=== PATIENT | female | born 1995 | race Caucasian/White ===

== ENCOUNTER 2016-07-20 09:23 | Emergency (ER) | payer MEDICAID, OTHER ==
[2016-07-20] MEDS ORDERED: KETOROLAC 30 MG/ML 1 ML VIAL IVP STA (09:43)
[2016-07-20] MEDS ORDERED: ONDANSETRON 4 MG/2 ML VIAL IVP STA (09:53)
[2016-07-20] MEDS ORDERED: HYDROmorphone 1 MG/ML 1 ML SYRINGE IVP STA ×2 (09:53→10:35)
[2016-07-20] MEDS ORDERED: SODIUM CHLORIDE 0.9% 1,000 ML IV STA ×2 (09:53)
--- NOTE | 2016-07-20 09:55 | ED ---
General Adult HPI - General Chief complaint: Abdominal Pain Stated complaint: POSS KIDNEY STONE Time Seen by Provider: 07/20/16 09:48 Source: patient, RN notes reviewed Mode of arrival: ambulatory Limitations: no limitations - History of Present Illness Initial comments: Patient 21-year-old female with significant past mental history who presents emergency room today with chief complaint of increased right-sided lung pain. Does admit that she had some mild discomfort last night with increased this morning upon awakening. Does admit to symptoms of nausea vomiting. States never had some symptoms in the past. Denies any other complaints or symptoms at this time. Patient denies any recent fever, chills, shortness of breath, chest pain, numbness or tingling, dysuria or hematuria, constipation or diarrhea , headaches or visual changes, or any other complaints. - Related Data Home Medications Medication Instructions Recorded Confirmed Thyrostim 1 tab PO DAILY 07/20/16 07/20/16 Previous Rx's Medication Instructions Recorded Hydrocodone/Acetaminophen [[place] 1 each PO Q6HR PRN #20 tab 07/20/16 5-325] Ibuprofen [Motrin] 600 mg PO Q6HR PRN #40 day 07/20/16 Nitrofurantoin Monohyd/M-Cryst 100 mg PO Q12HR #14 cap 07/20/16 [Macrobid] Ondansetron Odt [Zofran ODT] 4 mg PO Q8HR PRN #20 tab 07/20/16 Tamsulosin [Flomax] 0.4 mg PO DAILY #3 cap 07/20/16 Allergies Allergy/AdvReac Type Severity Reaction Status Date / Time amoxicillin [Amoxicillin] Allergy Rash/Hives Verified 01/17/14 16:27 azithromycin Allergy Rash/Hives Verified 12/22/14 22:28 [From Zithromax Z-Jayson] codeine Allergy Rapid Verified 01/17/14 16:27 Heart Rate Review of Systems ROS Statement: Those systems with pertinent positive or pertinent negative responses have been documented in the HPI. ROS Other: All systems not noted in ROS Statement are negative. Past Medical History Additional Past Medical History / Comment(s): hypothyroidism History of Any Multi-Drug Resistant Organisms: None Reported Past Surgical History: No Surgical Hx Reported Past Psychological History: Anxiety Smoking Status: Never smoker Past Alcohol Use History: None Reported Past Drug Use History: None Reported General Exam - General Exam Comments Initial Comments: General: The patient is awake and alert, in moderate distress. Eye: Pupils are equal, round and reactive to light, extra-ocular movements are intact. No nystagmus. There is normal conjunctiva bilaterally. No signs of icterus. Ears, nose, mouth and throat: There are moist mucous membranes and no oral lesions. Neck: The neck is supple, there is no tenderness or JVD. Cardiovascular: There is a regular rate and rhythm. No murmur, rub or gallop is appreciated. Respiratory: Lungs are clear to auscultation, respirations are non-labored, breath sounds are equal. No wheezes, stridor, rales, or rhonchi. Gastrointestinal: Normal appearance abdomen. Normal bowel sounds. Abdomen soft on palpation. Patient does have tenderness in the epigastric both left and right upper quadrants along with right lower quadrant. Moderate right- sided CVA tenderness. No rebound tenderness. No guarding. Musculoskeletal: Normal ROM, no tenderness. Strength 5/5. Sensation intact. Pulses equal bilaterally 2+. Neurological: A&O x 3. CN II-XII intact, There are no obvious motor or sensory deficits. Coordination appears grossly intact. Speech is normal. Skin: Skin is warm and dry and no rashes or lesions are noted. Psychiatric: Cooperative, appropriate mood & affect, normal judgment. Limitations: no limitations Course Vital Signs 07/20/16 07/20/16 09:28 11:54 Temperature 97.5 F L 98.1 F Pulse Rate 114 H 92 Respiratory 24 16 Rate Blood Pressure 132/87 127/71 O2 Sat by Pulse 100 98 Oximetry Medical Decision Making - Medical Decision Making Patient's CT reviewed and does show possible right ureteral calculus vision approximately 6 mm. There is dictated collecting system within the right kidney. These results were discussed with the patient. Patient's labs been reviewed. No sign of infection but will be started on antibiotics cover. Will be discharged home advised follow-up urologist over the next 2 days she's currently resting comfortably in no distress. Patient advised to return if any symptoms increase or worsen or for any fever or chills or any other concerns. She states understanding and is in agreement. - Lab Data Result diagrams: 07/20/16 09:20 07/20/16 09:20 Lab Results 07/20/16 07/20/16 07/20/16 Range/Units 09:20 09:20 10:00 WBC 8.1 (3.8-10.6) k/uL RBC 4.45 (3.80-5.40) m/uL Hgb 13.6 (11.4-16.0) gm/dL Hct 39.5 (34.0-46.0) % MCV 88.8 (80.0-100.0) fL MCH 30.6 (25.0-35.0) pg MCHC 34.5 (31.0-37.0) g/dL RDW 11.8 (11.5-15.5) % Plt Count 324 (150-450) k/uL Neutrophils % 62 % Lymphocytes % 30 % Monocytes % 4 % Eosinophils % 1 % Basophils % 1 % Neutrophils # 5.0 (1.3-7.7) k/uL Lymphocytes # 2.4 (1.0-4.8) k/uL Monocytes # 0.3 (0-1.0) k/uL Eosinophils # 0.1 (0-0.7) k/uL Basophils # 0.0 (0-0.2) k/uL Sodium 140 (137-145) mmol/L Potassium 3.7 (3.5-5.1) mmol/L Chloride 104 (98-107) mmol/L Carbon Dioxide 21 L (22-30) mmol/L Anion Gap 15 mmol/L BUN 15 (7-17) mg/dL Creatinine 0.70 (0.52-1.04) mg/dL Est GFR (MDRD) Af Amer >60 (>60 ml/min/1.73 sqM) Est GFR (MDRD) Non-Af >60 (>60 ml/min/1.73 sqM) Glucose 111 H (74-99) mg/dL Calcium 10.1 (8.4-10.2) mg/dL Total Bilirubin 0.7 (0.2-1.3) mg/dL AST 21 (14-36) U/L ALT 27 (9-52) U/L Alkaline Phosphatase 89 (38-126) U/L Total Protein 7.9 (6.3-8.2) g/dL Albumin 4.6 (3.5-5.0) g/dL Amylase 52 (30-110) U/L Lipase 37 (23-300) U/L Urine Color Urine Appearance (Clear) Urine pH (5.0-8.0) Ur Specific [place] (1.001-1.035) Urine Protein (Negative) Urine Glucose (UA) (Negative) Urine Ketones (Negative) Urine Blood (Negative) Urine Nitrite (Negative) Urine Bilirubin (Negative) Urine Urobilinogen (<2.0) mg/dL Ur Leukocyte Esterase (Negative) Urine RBC (0-5) /hpf Urine WBC (0-5) /hpf Ur Squamous Epith Cells (0-4) /hpf Urine Mucus (None) /hpf Urine HCG, Qual Not Detected (Not Detectd) 07/20/16 Range/Units 10:00 WBC (3.8-10.6) k/uL RBC (3.80-5.40) m/uL Hgb (11.4-16.0) gm/dL Hct (34.0-46.0) % MCV (80.0-100.0) fL MCH (25.0-35.0) pg MCHC (31.0-37.0) g/dL RDW (11.5-15.5) % Plt Count (150-450) k/uL Neutrophils % % Lymphocytes % % Monocytes % % Eosinophils % % Basophils % % Neutrophils # (1.3-7.7) k/uL Lymphocytes # (1.0-4.8) k/uL Monocytes # (0-1.0) k/uL Eosinophils # (0-0.7) k/uL Basophils # (0-0.2) k/uL Sodium (137-145) mmol/L Potassium (3.5-5.1) mmol/L Chloride (98-107) mmol/L Carbon Dioxide (22-30) mmol/L Anion Gap mmol/L BUN (7-17) mg/dL Creatinine (0.52-1.04) mg/dL Est GFR (MDRD) Af Amer (>60 ml/min/1.73 sqM) Est GFR (MDRD) Non-Af (>60 ml/min/1.73 sqM) Glucose (74-99) mg/dL Calcium (8.4-10.2) mg/dL Total Bilirubin (0.2-1.3) mg/dL AST (14-36) U/L ALT (9-52) U/L Alkaline Phosphatase (38-126) U/L Total Protein (6.3-8.2) g/dL Albumin (3.5-5.0) g/dL Amylase (30-110) U/L Lipase (23-300) U/L Urine Color Light [place] Urine Appearance Cloudy H (Clear) Urine pH 8.0 (5.0-8.0) Ur Specific [place] 1.018 (1.001-1.035) Urine Protein 1+ H (Negative) Urine Glucose (UA) Negative (Negative) Urine Ketones Trace H (Negative) Urine Blood Large H (Negative) Urine Nitrite Negative (Negative) Urine Bilirubin Negative (Negative) Urine Urobilinogen <2.0 (<2.0) mg/dL Ur Leukocyte Esterase Trace H (Negative) Urine RBC >182 H (0-5) /hpf Urine WBC 7 H (0-5) /hpf Ur Squamous Epith Cells 14 H (0-4) /hpf Urine Mucus Many H (None) /hpf Urine HCG, Qual (Not Detectd) Disposition Clinical Impression: Kidney stone Disposition: HOME SELF-CARE Condition: Good Instructions: Kidney Stones (ED) Additional Instructions: Please use medication as discussed. Please follow-up with family doctor in the next 2 days of symptoms have not improved. Please return to emergency room if the symptoms increase or worsen or for any other concerns. Prescriptions: Hydrocodone/Acetaminophen [[place] 5-325] 1 each PO Q6HR PRN #20 tab PRN Reason: Pain Ibuprofen [Motrin] 600 mg PO Q6HR PRN #40 day PRN Reason: Pain Nitrofurantoin Monohyd/M-Cryst [Macrobid] 100 mg PO Q12HR #14 cap Ondansetron Odt [Zofran ODT] 4 mg PO Q8HR PRN #20 tab PRN Reason: Nausea Tamsulosin [Flomax] 0.4 mg PO DAILY #3 cap Time of Disposition: 12:02
[2016-07-20 10:12] LABS: Basophils % (A) 1 %; CH 31.3; CHCM 35.3; Eosinophils # (A) 0.1 k/uL (0-0.7); Eosinophils % (A) 1 %; HCT 39.5 % (34.0-46.0); HGB 13.6 gm/dL (11.4-16.0); Luc # (Auto) 0.25; Luc % (Auto) 3; Lymphocytes # (A) 2.4 k/uL (1.0-4.8); Lymphocytes % (A) 30 %; MCH 30.6 pg (25.0-35.0); MCHC 34.5 g/dL (31.0-37.0); MCV 88.8 fL (80.0-100.0); Mean Platelet Volume 7.8; Monocytes # (A) 0.3 k/uL (0-1.0); Monocytes % (A) 4 %; Neutrophils % (A) 62 %; RBC 4.45 m/uL (3.80-5.40); RDW 11.8 % (11.5-15.5); WBC 8.1 k/uL (3.8-10.6); WBC (Perox) 7.95
[2016-07-20 10:18] LABS: Appearance,Urine Cloudy (Clear); Bilirubin,Urine Negative (Negative); Glucose,Urine (UA) Negative (Negative); Ketones,Urine Trace (Negative); Leukocyte Esterase,Urine Trace (Negative); Mucus,Urine Many /hpf; Nitrite,Urine Negative (Negative); Particle Count 17378; Protein,Urine 1+ (Negative); RBC,Urine >182 /hpf (0-5); Specific Gravity,Urine 1.018 (1.001-1.035); Squamous Epithelial Cell,Urine 14 /hpf (0-4); UA Billing (MACRO vs. MICRO) MICRO; Urobilinogen,Urine <2.0 mg/dL (<2.0); WBC,Urine 7 /hpf (0-5)
[2016-07-20 10:25] LABS: ALT 27 U/L (9-52); AST 21 U/L (14-36); Alkaline Phosphatase 89 U/L (38-126); Amylase 52 U/L (30-110); Anion Gap 15 mmol/L; Blood Urea Nitrogen 15 mg/dL (7-17); Calcium 10.1 mg/dL (8.4-10.2); Carbon Dioxide 21 mmol/L (22-30); Chloride 104 mmol/L (98-107); Glucose 111 mg/dL (74-99); Non-African American GFR(MDRD) >60 (>60 ml/min/1.73 sqM); Potassium 3.7 mmol/L (3.5-5.1); Sodium 140 mmol/L (137-145); Total Bilirubin 0.7 mg/dL (0.2-1.3); Total Protein 7.9 g/dL (6.3-8.2)
--- NOTE | 2016-07-20 10:57 | XR ---
EXAMINATION TYPE: XR KUB DATE OF EXAM: 07/20/2016 10:43 AM COMPARISON: NONE HISTORY: Right upper quadrant pain TECHNIQUE: One view abdominal series FINDINGS: The osseous structures are intact. The bowel gas pattern is nonspecific. Single prominent bowel loop in the upper abdomen noted. Lung bases are clear. IMPRESSION: 1. Nonspecific abdomen. Prominent single bowel loop in the midabdomen is nonspecific could be relate d to localized enteritis or ileus.
--- NOTE | 2016-07-20 11:12 | CT ---
EXAMINATION TYPE: CT abdomen pelvis wo con DATE OF EXAM: 07/20/2016 10:58 AM COMPARISON: Prior CT abdomen pelvis 16 Sep 2012 HISTORY: Rt flank pain CT DLP: 836 mGycm Automated exposure control for dose reduction was used. TECHNIQUE: Helical acquisition of images from the lung bases through the pelvis. FINDINGS: LUNG BASES: No significant abnormality is appreciated. AORTA: No significant abnormality is appreciated. LIVER/GB: No significant abnormality is appreciated. PANCREAS: No significant abnormality is seen. SPLEEN: No significant abnormality is seen. ADRENALS: No significant abnormality is seen. KIDNEYS: Proximal right ureteral calculus is present measuring approximately 6 mm. 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 REPRODUCTIVE ORGANS: No significant abnormality is seen. URINARY BLADDER: No significant abnormality is seen. BOWEL: Appendix is normal. No bowel obstruction. Small umbilical hernia contains fat. FREE AIR: No Free Air is visible. Small amount of free fluid in the pelvis. ASCITES: None visible. PELVIC ADENOPATHY: None visualized. RETROPERITONEAL ADENOPATHY: No Retroperitoneal Adenopathy visible. OSSEOUS STRUCTURES: No significant abnormality is seen. IMPRESSION: PROXIMAL RIGHT URETERAL CALCULUS WITH DUPLICATED COLLECTING SYSTEM ON THE RIGHT. MILD HYDRONEPHROSIS INVOLVING THE MORE ANTERIOR COLLECTING SYSTEM. NONCONTRAST EXAM.
[2016-07-20 11:56] VITALS: RESP 16; TEMP 98.1
[2016-07-20 12:09] VITALS: BP 122/74; PULSE 84
== END 2016-07-20 12:28 | disposition home or self-care (01) ==
LOC: EC 09:23
DX: N13.2 Hydronephrosis with renal and ureteral calculous obstruction (principal); Q63.8 Other specified congenital malformations of kidney; E03.9 Hypothyroidism, unspecified; Z79.899 Other long term (current) drug therapy; Z88.0 Allergy status to penicillin; Z88.1 Allergy status to other antibiotic agents; Z88.5 Allergy status to narcotic agent
CPT/HCPCS: 36415; 80053; 82150; 83690; 85025; 81001; 81025; 74000; 74176; 99284; 96374; 96375 ×2; 96361 ×2; J2405; J1885; J1170; 96376

== ENCOUNTER 2016-08-11 10:54 | Emergency (ER) | payer OTHER ==
[2016-08-11 11:16] VITALS: RESP 18
--- NOTE | 2016-08-11 11:46 | ED ---
Extremity Problem HPI - General Chief complaint: Extremity Problem,Nontraumatic Stated complaint: Leg pain Time Seen by Provider: 08/11/16 11:36 Source: patient, RN notes reviewed Mode of arrival: ambulatory Limitations: no limitations - History of Present Illness Initial comments: 21-year-old female presents emergency Department chief complaint of left calf pain. Patient states she woke up this morning with this pain in her left calf. Patient states that it is tight. Patient states she such that her leg hurts as well. Patient states that she also had a small area of pain to her left forearm. Patient states that she has been sitting at home breath last month or so she's been taking narcosis for a kidney stone pain. Patient states she is at flank and left chest active than normal she was concerned when she developed left calf pain. Patient denies any history of blood clots. Patient states she hasn't had any other symptoms with this. Patient states the pain is moderate worse to starting touching and movement of the legs better to rest. Patient states that she is not currently having any other symptoms at this time.Patient denies any recent fever, chills, shortness of breath, chest pain, back pain, abdominal pain, nausea vomiting, numbness or tingling, dysuria or hematuria, constipation or diarrhea, headaches or visual changes, or any other current symptoms. - Related Data Home Medications Medication Instructions Recorded Confirmed Thyrostim 1 tab PO DAILY 07/20/16 07/20/16 Previous Rx's Medication Instructions Recorded Hydrocodone/Acetaminophen [[place] 1 each PO Q6HR PRN #20 tab 07/20/16 5-325] Ibuprofen [Motrin] 600 mg PO Q6HR PRN #40 day 07/20/16 Nitrofurantoin Monohyd/M-Cryst 100 mg PO Q12HR #14 cap 07/20/16 [Macrobid] Ondansetron Odt [Zofran ODT] 4 mg PO Q8HR PRN #20 tab 07/20/16 Ondansetron [Zofran] 4 mg PO Q8HR PRN #20 tab 07/20/16 Tamsulosin [Flomax] 0.4 mg PO DAILY #3 cap 07/20/16 Allergies Allergy/AdvReac Type Severity Reaction Status Date / Time amoxicillin [Amoxicillin] Allergy Rash/Hives Verified 08/11/16 11:16 azithromycin Allergy Rash/Hives Verified 08/11/16 11:16 [From Zithromax Z-Jayson] codeine Allergy Rapid Verified 08/11/16 11:16 Heart Rate ethinyl estradiol Allergy Rash/Hives Verified 08/11/16 11:16 [From (21)] norethindrone acetate Allergy Rash/Hives Verified 08/11/16 11:16 [From (21)] Review of Systems ROS Statement: Those systems with pertinent positive or pertinent negative responses have been documented in the HPI. ROS Other: All systems not noted in ROS Statement are negative. Past Medical History Additional Past Medical History / Comment(s): hypothyroidism kikdney stones History of Any Multi-Drug Resistant Organisms: None Reported Past Surgical History: No Surgical Hx Reported Past Psychological History: Anxiety Smoking Status: Never smoker Past Alcohol Use History: None Reported Past Drug Use History: None Reported General Exam - General Exam Comments Initial Comments: General: The patient is awake and alert, in no distress, and does not appear acutely ill. Eye: Pupils are equal, round. Ears, nose, mouth and throat: There are moist mucous membranes. Neck: The neck is supple, there is no tenderness. Cardiovascular: There is a regular rate and rhythm. No murmur, rub or gallop is appreciated. Respiratory: Lungs are clear to auscultation, respirations are non-labored, breath sounds are equal. No wheezes, stridor, rales, or rhonchi. Musculoskeletal: Normal ROM, no tenderness, There is no pedal edema. Patient does have left Posterior tenderness with a positive Homans sign. No tenderness to left ankle or left knee informed motion. Patient's range of motion of left elbow and left wrist with no tenderness. Patient has a small circular area of point tenderness to left forearm. Sensation intact. Pulses equal bilaterally 2+ . Neurological: CN II-XII intact, There are no obvious motor or sensory deficits. Coordination appears grossly intact. Speech is normal. Skin: Skin is warm and dry and no rashes or lesions are noted. Psychiatric: Cooperative, appropriate mood & affect, normal judgment. Limitations: no limitations Course Vital Signs 08/11/16 11:12 Temperature 98.0 F Pulse Rate 98 Respiratory 18 Rate Blood Pressure 130/87 O2 Sat by Pulse 99 Oximetry Medical Decision Making - Medical Decision Making 21-year-old female presents emergency Department chief complaint of left lower extremity pain. This time we will get an ultrasound. At this time patient's ultrasound is negative for DVT. There is time we discussed patient most likely is having a left calf strain. We discussed care of this. We discussed follow- up and return parameters. Patient's family stated they understood all questions were answered. They will be discharged. - Radiology Data Radiology results: report reviewed, image reviewed Disposition Clinical Impression: Strain of calf muscle Disposition: HOME SELF-CARE Condition: Stable Instructions: Muscle Strain (ED) Additional Instructions: Please use medication as discussed. Please follow up with family doctor if symptoms have not improved over the next two days. Please return to the emergency room if your symptoms increase or worsen or for any other concerns. Referrals: Deniz Jarrell DO [Primary Care Provider] - 1-2 days
--- NOTE | 2016-08-11 12:41 | US ---
EXAMINATION TYPE: US venous doppler duplex LE LT DATE OF EXAM: 08/11/2016 12:29 PM COMPARISON: NONE CLINICAL HISTORY: 21-year-old female Pain. Left leg pain SIDE PERFORMED: Left TECHNIQUE: The lower extremity deep venous system is examined utilizing real time linear array sonog gregoria with graded compression, doppler sonography and color-flow sonography. FINDINGS: VESSELS IMAGED: External Iliac Vein (EIV) Common Femoral Vein Deep Femoral Vein Greater Saphenous Vein * Femoral Vein Popliteal Vein Proximal Calf Veins (* superficial vessels) Left Leg: Negative for DVT IMPRESSION: No evidence for DVT within the left lower extremity imaged from the groin to the upper calf.
[2016-08-11 12:54] VITALS: BP 144/90; PULSE 97; TEMP 97.3
== END 2016-08-11 12:53 | disposition home or self-care (01) ==
LOC: EC 10:54
DX: S86.912A Strain of unspecified muscle(s) and tendon(s) at lower leg level, left leg, initial encounter (principal); M79.632 Pain in left forearm; E03.9 Hypothyroidism, unspecified; Z79.899 Other long term (current) drug therapy; Z88.0 Allergy status to penicillin; Z88.1 Allergy status to other antibiotic agents; Z88.5 Allergy status to narcotic agent; Z88.8 Allergy status to other drugs, medicaments and biological substances; X58.XXXA Exposure to other specified factors, initial encounter
CPT/HCPCS: 99283

== ENCOUNTER → 2016-08-31 | Outpatient (CLI) | payer OTHER ==
--- NOTE | 2016-08-31 12:12 | XR ---
EXAMINATION TYPE: XR KUB DATE OF EXAM: 08/31/2016 12:06 PM CLINICAL HISTORY: Right-sided kidney stone with cystoscopy 2 weeks ago. TECHNIQUE: Single supine KUB image of the abdomen is obtained. COMPARISON: CT abdomen and pelvis and abdominal x-ray July 20, 2016. FINDINGS: Small right calculus 5 mm at UPJ is not well seen on this or prior x-ray to assess change. Scattered gas is seen in non-distended stomach and small bowel loops. Gas and fecal material is seen in non-distended colon. Visualized osseous structures are intact. Lung bases are not included. IMPRESSION: A 5 mm calculus at right UPJ on CT is not well seen on this or prior x-ray to assess inte rval change.
== END | disposition home or self-care (01) ==
LOC: RADXRMAIN 11:54
PROVIDERS: ATTEND Urology
DX: N20.1 Calculus of ureter (principal)
CPT/HCPCS: 74000

== ENCOUNTER → 2016-12-26 | Outpatient (CLI) | payer OTHER ==
--- NOTE | 2016-12-26 14:17 | US ---
EXAMINATION TYPE: US kidneys/renal and bladder DATE OF EXAM: 12/26/2016 COMPARISON: CT abdomen pelvis dated 07/20/2016 CLINICAL HISTORY: Calculus of Ureter N20.1, R93.4 Hx of hydronephros. EXAM MEASUREMENTS: Right Kidney: 9.8 x 4.2 x 4.4 cm Left Kidney: 9.5 x 4.6 x 4.7 cm Right Kidney: No hydronephrosis or masses seen Left Kidney: No hydronephrosis or masses seen Bladder: wnl Bilateral Jets seen: Yes There is no evidence for hydronephrosis at this point in time. No nephrolithiasis is seen. No tammy s are identified. The urinary bladder is anechoic. Bilateral ureteral jets are seen. IMPRESSION: No evidence of nephrolithiasis or hydronephrosis. Hydronephrosis has resolved on the right from the p rior examination of 07/20/2016.
== END | disposition home or self-care (01) ==
LOC: RADUSWWP 13:35
PROVIDERS: ATTEND Urology
DX: N13.30 Unspecified hydronephrosis (principal)
CPT/HCPCS: 76770

== ENCOUNTER 2017-03-27 11:37 | Emergency (ER) | payer OTHER ==
[2017-03-27 12:06] VITALS: TEMP 98.2
[2017-03-27] MEDS ORDERED: ONDANSETRON 4 MG/2 ML VIAL IVP STA (12:10)
[2017-03-27] MEDS ORDERED: FAMOTIDINE 20 MG/2 ML VIAL IV STA (12:10)
[2017-03-27] MEDS ORDERED: SODIUM CHLORIDE 0.9% 1,000 ML IV ONE (12:36)
[2017-03-27] MEDS ORDERED: methylPREDNISolone SOD SUCCI 125 MG/2 ML VIAL IV STA (12:36)
--- NOTE | 2017-03-27 12:40 | ED ---
Allergic Reaction HPI - General Chief complaint: Allergic Reaction Stated complaint: Allergic Reaction Time Seen by Provider: 03/27/17 11:47 Source: patient, RN notes reviewed Mode of arrival: ambulatory Limitations: no limitations - History of Present Illness Initial Comments: This a 21-year-old female presents emergency Department chief complaint ALLERGIC reaction. Patient states she was at Dr. Hu office receiving ALLERGY injections states she had ALLERGIC reaction to them. Patient was given Benadryl and IV. Patient states she feels very shaky states her symptoms are improving. patient states that she has no difficulty breathing. Patient states she has multiple ALLERGIES to medications, food and environmental ALLERGIES - Related Data Home Medications Medication Instructions Recorded Confirmed Albuterol Sulfate [Proair 1 puff PO RT-DAILY 03/27/17 03/27/17 Respiclick] Fexofenadine HCl [Danielle Allergy] 180 mg PO DAILY 03/27/17 03/27/17 Montelukast Sodium [Singulair] 10 mg PO HS 03/27/17 03/27/17 Previous Rx's Medication Instructions Recorded predniSONE 50 mg PO DAILY #3 tab 03/27/17 Allergies Allergy/AdvReac Type Severity Reaction Status Date / Time amoxicillin [Amoxicillin] Allergy Rash/Hives Verified 03/27/17 11:57 azithromycin Allergy Rash/Hives Verified 03/27/17 11:57 [From Zithromax Z-Jayson] cashew nut Allergy Unknown Verified 03/27/17 11:57 codeine Allergy Rapid Verified 03/27/17 11:57 Heart Rate ethinyl estradiol Allergy Rash/Hives Verified 03/27/17 11:57 [From ()] norethindrone acetate Allergy Rash/Hives Verified 03/27/17 11:57 [From (21)] shellfish derived [Shrimp] Allergy Unknown Verified 03/27/17 11:57 Sulfa (Sulfonamide Allergy Unknown Verified 03/27/17 11:57 Antibiotics) tuna oil Allergy Unknown Verified 03/27/17 11:57 Review of Systems ROS Statement: Those systems with pertinent positive or pertinent negative responses have been documented in the HPI. ROS Other: All systems not noted in ROS Statement are negative. Past Medical History Past Medical History: Thyroid Disorder Additional Past Medical History / Comment(s): hypothyroidism kidney stones History of Any Multi-Drug Resistant Organisms: None Reported Past Surgical History: No Surgical Hx Reported Past Psychological History: Anxiety Smoking Status: Never smoker Past Alcohol Use History: None Reported Past Drug Use History: None Reported General Exam Limitations: no limitations General appearance: alert, in no apparent distress Head exam: Present: atraumatic, normocephalic, normal inspection Eye exam: Present: normal appearance, PERRL, EOMI. Absent: scleral icterus, conjunctival injection, periorbital swelling ENT exam: Present: normal exam, mucous membranes moist Neck exam: Present: normal inspection, full ROM. Absent: tenderness, meningismus, lymphadenopathy Respiratory exam: Present: normal lung sounds bilaterally. Absent: respiratory distress, wheezes, rales, rhonchi, stridor Cardiovascular Exam: Present: normal rhythm, tachycardia, normal heart sounds. Absent: systolic murmur, diastolic murmur, rubs, gallop, clicks Skin exam: Present: warm, dry, intact, normal color. Absent: rash Course Vital Signs 03/27/17 03/27/17 11:42 11:56 Temperature 98.0 F 98.2 F Pulse Rate 122 H 116 H Respiratory 22 28 H Rate Blood Pressure 144/94 134/64 O2 Sat by Pulse 100 99 Oximetry Medical Decision Making - Medical Decision Making 21-year-old male present emergency for ALLERGIC reaction. Patient is in or stressors stress no difficulty swallowing. Patient was given Pepcid and Solu- Medrol and fluid bolus. She states she is feeling better at this time. She'll be discharged advised take steroids relax 3 days and continuation of Benadryl return parameters were discussed. Disposition Clinical Impression: Allergic reaction Disposition: HOME SELF-CARE Condition: Stable Instructions: Anaphylaxis (ED) Additional Instructions: Please return to the Emergency Department if symptoms worsen or any other concerns. Prescriptions: predniSONE 50 mg PO DAILY #3 tab Referrals: Deniz Jarrell DO [Primary Care Provider] - 1-2 days Time of Disposition: 12:39
[2017-03-27 12:42] VITALS: RESP 18
[2017-03-27 13:57] VITALS: BP 119/74; PULSE 90
== END 2017-03-27 13:55 | disposition home or self-care (01) ==
LOC: EC 11:37
DX: T78.40XA Allergy, unspecified, initial encounter (principal); E03.9 Hypothyroidism, unspecified; F41.9 Anxiety disorder, unspecified; Z79.899 Other long term (current) drug therapy; Z88.0 Allergy status to penicillin; Z88.1 Allergy status to other antibiotic agents; Z88.5 Allergy status to narcotic agent; Z88.2 Allergy status to sulfonamides; Z91.013 Allergy to seafood; Z91.018 Allergy to other foods; Z88.8 Allergy status to other drugs, medicaments and biological substances
CPT/HCPCS: 99283; 96374; 96375 ×2; 96361; J2930; J2405

== ENCOUNTER 2017-10-31 21:31 | Emergency (ER) | payer MEDICAID, OTHER ==
[2017-10-31] MEDS ORDERED: KETOROLAC 30 MG/ML 1 ML VIAL IVP STA (22:14)
[2017-10-31] MEDS ORDERED: SODIUM CHLORIDE 0.9% 1,000 ML IV STA (22:14)
--- NOTE | 2017-10-31 22:19 | ED ---
Abdominal Pain HPI - General Chief Complaint: Abdominal Pain Stated Complaint: pelvic pain Time Seen by Provider: 10/31/17 21:58 Source: patient Mode of arrival: ambulatory Limitations: no limitations - History of Present Illness Initial Comments: 22-year-old female patient presents to the emergency department today for evaluation of pelvic pain. Patient states that she has had the pain for the last 3 months. States that the pain is present daily. States that when she has her. The pain goes away and she expresses her normal period cramping. She states that she is having low back pain with this. States that she has been trying to get into her stepdown nurse but doesn't have an appointment until December. She denies any dysuria, hematuria, urinary frequency, urinary urgency, vaginal discharge, abnormal vaginal bleeding, fevers, or chills. States that with the pain last month she did have one day where she vomited due to the severity of the pain. She denies any constipation or diarrhea. Denies any hematochezia or melena. Patient states she has not been evaluated for this pain before. Denies any chance of . Does not take control. Has a benign medical history. Patient denies any recent rash, shortness breath, chest pain, numbness, tingling, dizziness, weakness, headache, visual changes, or any other complaints. - Related Data Home Medications Medication Instructions Recorded Confirmed Albuterol Sulfate [Proair 1 puff INHALATION RT-DAILY PRN 03/27/17 10/31/17 Respiclick] Ibuprofen [Motrin Ib] 600 mg PO Q6H PRN 10/31/17 10/31/17 Allergies Allergy/AdvReac Type Severity Reaction Status Date / Time amoxicillin [Amoxicillin] Allergy Rash/Hives Verified 10/31/17 22:29 azithromycin Allergy Rash/Hives Verified 10/31/17 22:29 [From Zithromax Z-Jayson] cashew nut Allergy Unknown Verified 10/31/17 22:29 codeine Allergy Rapid Verified 10/31/17 22:29 Heart Rate ethinyl estradiol Allergy Rash/Hives Verified 10/31/17 22:29 [From (21)] norethindrone acetate Allergy Rash/Hives Verified 10/31/17 22:29 [From (21)] shellfish derived [Shrimp] Allergy Unknown Verified 10/31/17 22:29 Sulfa (Sulfonamide Allergy Unknown Verified 10/31/17 22:29 Antibiotics) tuna oil Allergy Unknown Verified 10/31/17 22:29 Review of Systems ROS Statement: Those systems with pertinent positive or pertinent negative responses have been documented in the HPI. ROS Other: All systems not noted in ROS Statement are negative. Past Medical History Past Medical History: Thyroid Disorder Additional Past Medical History / Comment(s): hypothyroidism kidney stones History of Any Multi-Drug Resistant Organisms: None Reported Past Surgical History: No Surgical Hx Reported Additional Past Surgical History / Comment(s): cysto for kidney stone removal Past Psychological History: Anxiety Smoking Status: Never smoker Past Alcohol Use History: None Reported Past Drug Use History: None Reported General Exam Limitations: no limitations General appearance: alert, in no apparent distress, other Eye exam: Present: normal appearance, PERRL, EOMI. Absent: scleral icterus, conjunctival injection, periorbital swelling ENT exam: Present: normal exam, normal oropharynx (Physical well-developed, well -nourished adult female patient in no acute distress. Vital signs upon presentation are temperature 98.8F, pulse 99, respirations 20, blood pressure 127/90, pulse ox 100% on room air.), mucous membranes moist Respiratory exam: Present: normal lung sounds bilaterally. Absent: respiratory distress, wheezes, rales, rhonchi, stridor Cardiovascular Exam: Present: regular rate, normal rhythm, normal heart sounds. Absent: systolic murmur, diastolic murmur, rubs, gallop, clicks GI/Abdominal exam: Present: soft, tenderness (Bilateral pelvic tenderness), normal bowel sounds. Absent: distended, guarding, rebound, rigid Back exam: Present: normal inspection. Absent: CVA tenderness (R), CVA tenderness (L) Neurological exam: Present: alert, oriented X3, CN II-XII intact Psychiatric exam: Present: normal affect, normal mood Skin exam: Present: warm, dry, intact, normal color. Absent: rash Course Vital Signs 10/31/17 11/01/17 21:36 00:31 Temperature 98.8 F Pulse Rate 99 88 Respiratory 20 16 Rate Blood Pressure 127/90 134/74 O2 Sat by Pulse 100 97 Oximetry Medical Decision Making - Medical Decision Making 22-year-old female patient presents the emergency department today for evaluation of pelvic pain 4 months. Physical examination does reveal right and left pelvic tenderness. Labs reviewed and showed no acute abnormalities. White blood cell count was normal. Urinalysis was negative. During history patient denied any abnormal vaginal bleeding or discharge. Patient denied any chance of STDs, states she's been in a monogamous relationship for the last 4 years. Transvaginal ultrasound was obtained and showed no acute abnormalities. Patient be discharged home to follow-up with her stepdown nurse and her primary care physician for further evaluation. Return parameters discussed in detail. She verbalizes understanding and agrees with this plan. - Lab Data Result diagrams: 10/31/17 22:49 10/31/17 22:49 Lab Results 10/31/17 10/31/17 10/31/17 Range/Units 22:49 22:49 22:49 WBC 10.0 (3.8-10.6) k/uL RBC 4.83 (3.80-5.40) m/uL Hgb 14.2 (11.4-16.0) gm/dL Hct 42.6 (34.0-46.0) % MCV 88.1 (80.0-100.0) fL MCH 29.5 (25.0-35.0) pg MCHC 33.5 (31.0-37.0) g/dL RDW 12.2 (11.5-15.5) % Plt Count 353 (150-450) k/uL Neutrophils % 62 % Lymphocytes % 30 % Monocytes % 5 % Eosinophils % 1 % Basophils % 0 % Neutrophils # 6.2 (1.3-7.7) k/uL Lymphocytes # 3.0 (1.0-4.8) k/uL Monocytes # 0.5 (0-1.0) k/uL Eosinophils # 0.1 (0-0.7) k/uL Basophils # 0.0 (0-0.2) k/uL Sodium 141 (137-145) mmol/L Potassium 4.0 (3.5-5.1) mmol/L Chloride 105 (98-107) mmol/L Carbon Dioxide 25 (22-30) mmol/L Anion Gap 11 mmol/L BUN 17 (7-17) mg/dL Creatinine 0.70 (0.52-1.04) mg/dL Est GFR (CKD-EPI)AfAm >90 (>60 ml/min/1.73 sqM) Est GFR (CKD-EPI)NonAf >90 (>60 ml/min/1.73 sqM) Glucose 98 (74-99) mg/dL Calcium 9.7 (8.4-10.2) mg/dL Total Bilirubin 0.4 (0.2-1.3) mg/dL AST 27 (14-36) U/L ALT 32 (9-52) U/L Alkaline Phosphatase 87 (38-126) U/L Total Protein 7.7 (6.3-8.2) g/dL Albumin 4.8 (3.5-5.0) g/dL Amylase 63 (30-110) U/L Lipase 64 (23-300) U/L Urine Color Yellow Urine Appearance Clear (Clear) Urine pH 6.5 (5.0-8.0) Ur Specific [place] 1.018 (1.001-1.035) Urine Protein Negative (Negative) Urine Glucose (UA) Negative (Negative) Urine Ketones Negative (Negative) Urine Blood Negative (Negative) Urine Nitrite Negative (Negative) Urine Bilirubin Negative (Negative) Urine Urobilinogen <2.0 (<2.0) mg/dL Ur Leukocyte Esterase Negative (Negative) Urine HCG, Qual (Not Detectd) 10/31/17 Range/Units 22:49 WBC (3.8-10.6) k/uL RBC (3.80-5.40) m/uL Hgb (11.4-16.0) gm/dL Hct (34.0-46.0) % MCV (80.0-100.0) fL MCH (25.0-35.0) pg MCHC (31.0-37.0) g/dL RDW (11.5-15.5) % Plt Count (150-450) k/uL Neutrophils % % Lymphocytes % % Monocytes % % Eosinophils % % Basophils % % Neutrophils # (1.3-7.7) k/uL Lymphocytes # (1.0-4.8) k/uL Monocytes # (0-1.0) k/uL Eosinophils # (0-0.7) k/uL Basophils # (0-0.2) k/uL Sodium (137-145) mmol/L Potassium (3.5-5.1) mmol/L Chloride (98-107) mmol/L Carbon Dioxide (22-30) mmol/L Anion Gap mmol/L BUN (7-17) mg/dL Creatinine (0.52-1.04) mg/dL Est GFR (CKD-EPI)AfAm (>60 ml/min/1.73 sqM) Est GFR (CKD-EPI)NonAf (>60 ml/min/1.73 sqM) Glucose (74-99) mg/dL Calcium (8.4-10.2) mg/dL Total Bilirubin (0.2-1.3) mg/dL AST (14-36) U/L ALT (9-52) U/L Alkaline Phosphatase (38-126) U/L Total Protein (6.3-8.2) g/dL Albumin (3.5-5.0) g/dL Amylase (30-110) U/L Lipase (23-300) U/L Urine Color Urine Appearance (Clear) Urine pH (5.0-8.0) Ur Specific [place] (1.001-1.035) Urine Protein (Negative) Urine Glucose (UA) (Negative) Urine Ketones (Negative) Urine Blood (Negative) Urine Nitrite (Negative) Urine Bilirubin (Negative) Urine Urobilinogen (<2.0) mg/dL Ur Leukocyte Esterase (Negative) Urine HCG, Qual Not Detected (Not Detectd) - Radiology Data Radiology results: report reviewed, image reviewed Transvaginal ultrasound of the pelvis was obtained. Report was reviewed in its entirety. Impression by Dr. Parra shows normal uterus and endometrium. No evidence of ovarian torsion. Negative exam. Disposition Clinical Impression: Pelvic pain Disposition: HOME SELF-CARE Condition: Good Instructions: Pelvic Pain in Women (ED) Additional Instructions: Follow-up with your stepdown nurse or primary care physician as soon as possible. Return here immediately for any new, worsening, or concerning symptoms. Is patient prescribed a controlled substance at d/c from ED?: No Referrals: Deniz Jarrell DO [Primary Care Provider] - 1-2 days Time of Disposition: 00:45
[2017-10-31 22:55] LABS: Appearance,Urine Clear (Clear); Bilirubin,Urine Negative (Negative); Blood,Urine Negative (Negative); Color,Urine Yellow; Glucose,Urine (UA) Negative (Negative); Ketones,Urine Negative (Negative); Leukocyte Esterase,Urine Negative (Negative); Nitrite,Urine Negative (Negative); PH, Urine 6.5 (5.0-8.0); Protein,Urine Negative (Negative); Specific Gravity,Urine 1.018 (1.001-1.035); Urobilinogen,Urine <2.0 mg/dL (<2.0)
[2017-10-31 22:59] LABS: Basophils % (A) 0 %; Eosinophils # (A) 0.1 k/uL (0-0.7); Eosinophils % (A) 1 %; HCT 42.6 % (34.0-46.0); HGB 14.2 gm/dL (11.4-16.0); Lymphocytes % (A) 30 %; MCH 29.5 pg (25.0-35.0); MCHC 33.5 g/dL (31.0-37.0); MCV 88.1 fL (80.0-100.0); Mean Platelet Volume 6.8; Monocytes # (A) 0.5 k/uL (0-1.0); Monocytes % (A) 5 %; Neutrophils # (A) 6.2 k/uL (1.3-7.7); Neutrophils % (A) 62 %; Platelet Count 353 k/uL (150-450); RBC 4.83 m/uL (3.80-5.40); RDW 12.2 % (11.5-15.5)
[2017-10-31 23:07] LABS: ALT 32 U/L (9-52); AST 27 U/L (14-36); Albumin 4.8 g/dL (3.5-5.0); Alkaline Phosphatase 87 U/L (38-126); Amylase 63 U/L (30-110); Anion Gap 11 mmol/L; Blood Urea Nitrogen 17 mg/dL (7-17); Calcium 9.7 mg/dL (8.4-10.2); Carbon Dioxide 25 mmol/L (22-30); Chloride 105 mmol/L (98-107); Glucose 98 mg/dL (74-99); Lipase 64 U/L (23-300); Sodium 141 mmol/L (137-145); Total Bilirubin 0.4 mg/dL (0.2-1.3); Total Protein 7.7 g/dL (6.3-8.2)
--- NOTE | 2017-11-01 00:02 | US ---
EXAMINATION TYPE: US transvaginal DATE OF EXAM: 10/31/2017 COMPARISON: NONE CLINICAL HISTORY: Pain. Pelvic pain TECHNIQUE: Transvaginal (TV). EXAM MEASUREMENTS: Uterus: 7.3 x 3.0 x 4.3 cm Endometrial Stripe: 0.7 cm Right Ovary: 2.2 x 1.3 x 1.2 cm Left Ovary: 2.3 x 1.6 x 0.8 cm 1. Uterus: Anteverted wnl . 2. Endometrium: wnl 3. Right Ovary: wnl 4. Left Ovary: wnl Spectral, color and waveform doppler imaging shows good arterial and venous flow within the ovaries ; there is no evidence for ovarian torsion. 5. Bilateral Adnexa: wnl 6. Posterior cul-de-sac: wnl IMPRESSION: Normal uterus and endometrium. No evidence of ovarian torsion. Negative exam.
[2017-11-01 00:32] VITALS: BP 134/74; PULSE 88; RESP 16
[2017-11-01 01:09] VITALS: TEMP 97.7
== END 2017-11-01 01:08 | disposition home or self-care (01) ==
LOC: EC 21:31
DX: R10.2 Pelvic and perineal pain (principal); M54.5 Low back pain; Z88.0 Allergy status to penicillin; Z88.1 Allergy status to other antibiotic agents; Z91.018 Allergy to other foods; Z88.5 Allergy status to narcotic agent; Z88.8 Allergy status to other drugs, medicaments and biological substances; Z91.013 Allergy to seafood; Z88.2 Allergy status to sulfonamides; Z87.442 Personal history of urinary calculi
CPT/HCPCS: 36415; 80053; 82150; 83690; 85025; 81003; 81025; 93975; 76830; 99284; 96374; 96361; J1885

== ENCOUNTER → 2017-11-20 | Outpatient (CLI) | payer MEDICAID ==
[2017-11-20 16:40] LABS: T4, Free (Free Thyroxine) 0.93 ng/dL (0.78-2.19)
== END | disposition home or self-care (01) ==
LOC: LABWHC1 15:29
PROVIDERS: ATTEND Obstetrics & Gynecology
DX: Z13.29 Encounter for screening for other suspected endocrine disorder (principal)
CPT/HCPCS: 36415; 84439; 84443; 84479

== ENCOUNTER → 2017-12-05 | Outpatient (CLI) | payer MEDICAID ==
--- NOTE | 2017-12-05 18:38 | XR ---
EXAMINATION TYPE: XR foot complete LT DATE OF EXAM: 12/05/2017 COMPARISON: NONE HISTORY: Pain TECHNIQUE: 3 views FINDINGS: There is mild cortical thickening involving the distal shaft of the second and third metata rsals. There is no displaced fracture. Joint spaces are normal. IMPRESSION: There is evidence for some healing stress fractures of the distal second and third metata rsals.
== END | disposition home or self-care (01) ==
LOC: RADXRMAIN 18:10
PROVIDERS: ATTEND Family Medicine
DX: S92.332D Displaced fracture of third metatarsal bone, left foot, subsequent encounter for fracture with routine healing (principal); S92.322D Displaced fracture of second metatarsal bone, left foot, subsequent encounter for fracture with routine healing

== ENCOUNTER 2018-04-10 18:21 | Emergency (ER) | payer MEDICAID ==
[2018-04-10 18:33] VITALS: RESP 16
[2018-04-10] MEDS ORDERED: SODIUM CHLORIDE 0.9% 1,000 ML IV STA (18:54)
[2018-04-10] MEDS ORDERED: ONDANSETRON 4 MG/2 ML VIAL IVP STA (18:54)
[2018-04-10] MEDS ORDERED: KETOROLAC 30 MG/ML 1 ML VIAL IVP STA (18:54)
[2018-04-10] MEDS ORDERED: MORPHINE SULFATE 2 MG/ML SYRINGE IVP STA (18:54)
--- NOTE | 2018-04-10 19:00 | ED ---
Abdominal Pain HPI - General Chief Complaint: Abdominal Pain Stated Complaint: poss kidney stone Time Seen by Provider: 04/10/18 18:44 Source: patient Mode of arrival: ambulatory Limitations: no limitations - History of Present Illness Initial Comments: 22-year-old female patient presents to the emergency department today for evaluation of left flank pain that radiates into the abdomen. Patient states that pain started 2-3 days ago and worsened today. States that she has been nauseated but has not vomited. States she has felt chilled but has had no fevers. Patient states she does have history of kidney stones and this does feel similar. She denies any hematuria, dysuria, urinary frequency, urinary urgency. She is unsure she may be . She denies any cough or congestion. She denies any abnormal vaginal discharge or bleeding. Patient denies any recent rash, shortness breath, chest pain, diarrhea, constipation, back pain, numbness, tingling, dizziness, weakness, headache, visual changes, or any other complaints. - Related Data Previous Rx's Medication Instructions Recorded Hydrocodone/Acetaminophen [[place] 1 tab PO Q6HR PRN #12 tab 04/10/18 5-325] Ketorolac [Toradol] 10 mg PO Q6HR PRN #12 tab 04/10/18 Ondansetron [Zofran ODT] 4 mg PO Q8HR PRN #10 tab 04/10/18 Allergies Allergy/AdvReac Type Severity Reaction Status Date / Time amoxicillin [Amoxicillin] Allergy Rash/Hives Verified 04/10/18 19:10 azithromycin Allergy Rash/Hives Verified 04/10/18 19:10 [From Zithromax Z-Jayson] cashew nut Allergy Unknown Verified 04/10/18 19:10 codeine Allergy Rapid Verified 04/10/18 19:10 Heart Rate ethinyl estradiol Allergy Rash/Hives Verified 04/10/18 19:10 [From (21)] norethindrone acetate Allergy Rash/Hives Verified 04/10/18 19:10 [From (21)] shellfish derived [Shrimp] Allergy Unknown Verified 04/10/18 19:10 Sulfa (Sulfonamide Allergy Unknown Verified 04/10/18 19:10 Antibiotics) tuna oil Allergy Unknown Verified 04/10/18 19:10 Review of Systems ROS Statement: Those systems with pertinent positive or pertinent negative responses have been documented in the HPI. ROS Other: All systems not noted in ROS Statement are negative. Past Medical History Past Medical History: Thyroid Disorder Additional Past Medical History / Comment(s): hypothyroidism kidney stones History of Any Multi-Drug Resistant Organisms: None Reported Past Surgical History: No Surgical Hx Reported Additional Past Surgical History / Comment(s): cysto for kidney stone removal Past Psychological History: Anxiety Smoking Status: Never smoker Past Alcohol Use History: None Reported Past Drug Use History: None Reported General Exam Limitations: no limitations General appearance: alert, in no apparent distress, other (This is a well- developed, well-nourished adult female patient in no acute distress. Vital signs upon presentation are temperature 98.5F, pulse 93, respirations 16, blood pressure 131/82, pulse ox 98% on room air.) Eye exam: Present: normal appearance, PERRL, EOMI. Absent: scleral icterus, conjunctival injection, periorbital swelling ENT exam: Present: normal exam, normal oropharynx, mucous membranes moist Respiratory exam: Present: normal lung sounds bilaterally. Absent: respiratory distress, wheezes, rales, rhonchi, stridor Cardiovascular Exam: Present: regular rate, normal rhythm, normal heart sounds. Absent: systolic murmur, diastolic murmur, rubs, gallop, clicks GI/Abdominal exam: Present: soft, tenderness (Left upper quadrant and left lower quadrant. ), normal bowel sounds. Absent: distended, guarding, rebound, rigid Back exam: Present: normal inspection, CVA tenderness (L). Absent: CVA tenderness (R) Neurological exam: Present: alert, oriented X3, CN II-XII intact Psychiatric exam: Present: normal affect, normal mood Skin exam: Present: warm, dry, intact, normal color. Absent: rash Course Vital Signs 04/10/18 04/10/18 18:31 21:34 Temperature 98.5 F 97.5 F L Pulse Rate 93 94 Respiratory 16 16 Rate Blood Pressure 131/82 117/90 O2 Sat by Pulse 98 95 Oximetry Medical Decision Making - Medical Decision Making 22-year-old female patient presented to the emergency department today with complaints of left flank pain that started 2-3 days ago. Patient does have history of kidney stones reports the pain is similar to her previous episodes. Labs reviewed and did reveal white blood cell count at 12.4, neutrophil count 8.6, urinalysis showed a cloudy appearance with trace protein, moderate blood, greater than 182 red blood cells, 5 squamous epithelial cells, rare calcium oxalate crystals, many urine bacteria, few mucus, rare budding yeast. HCG negative. Patient symptoms and urine findings are consistent with kidney stone. She'll be discharged home with pain medication, Flomax, and nausea medication. She is instructed to follow-up with her urologist for recheck as soon as possible. Return parameters discussed in detail. She verbalizes understanding and agrees with this plan. - Lab Data Result diagrams: 04/10/18 19:06 04/10/18 19:06 Lab Results 04/10/18 04/10/18 04/10/18 Range/Units 19: 19: 19:30 WBC 12.4 H (3.8-10.6) k/uL RBC 4.77 (3.80-5.40) m/uL Hgb 13.9 (11.4-16.0) gm/dL Hct 42.0 (34.0-46.0) % MCV 88.1 (80.0-100.0) fL MCH 29.1 (25.0-35.0) pg MCHC 33.1 (31.0-37.0) g/dL RDW 12.4 (11.5-15.5) % Plt Count 402 (150-450) k/uL Neutrophils % 69 % Lymphocytes % 24 % Monocytes % 5 % Eosinophils % 1 % Basophils % 0 % Neutrophils # 8.6 H (1.3-7.7) k/uL Lymphocytes # 2.9 (1.0-4.8) k/uL Monocytes # 0.6 (0-1.0) k/uL Eosinophils # 0.1 (0-0.7) k/uL Basophils # 0.0 (0-0.2) k/uL Sodium 142 (137-145) mmol/L Potassium 3.8 (3.5-5.1) mmol/L Chloride 107 (98-107) mmol/L Carbon Dioxide 25 (22-30) mmol/L Anion Gap 10 mmol/L BUN 15 (7-17) mg/dL Creatinine 0.73 (0.52-1.04) mg/dL Est GFR (CKD-EPI)AfAm >90 (>60 ml/min/1.73 sqM) Est GFR (CKD-EPI)NonAf >90 (>60 ml/min/1.73 sqM) Glucose 88 (74-99) mg/dL Calcium 9.9 (8.4-10.2) mg/dL Total Bilirubin 0.5 (0.2-1.3) mg/dL AST 23 (14-36) U/L ALT 24 (9-52) U/L Alkaline Phosphatase 119 (38-126) U/L Total Protein 8.1 (6.3-8.2) g/dL Albumin 4.6 (3.5-5.0) g/dL Amylase 52 (30-110) U/L Lipase 71 (23-300) U/L Urine Color Yellow Urine Appearance Cloudy H (Clear) Urine pH 7.0 (5.0-8.0) Ur Specific [place] 1.016 (1.001-1.035) Urine Protein Trace H (Negative) Urine Glucose (UA) Negative (Negative) Urine Ketones Negative (Negative) Urine Blood Moderate H (Negative) Urine Nitrite Negative (Negative) Urine Bilirubin Negative (Negative) Urine Urobilinogen <2.0 (<2.0) mg/dL Ur Leukocyte Esterase Negative (Negative) Urine RBC >182 H (0-5) /hpf Urine WBC 5 (0-5) /hpf Ur Squamous Epith Cells 5 H (0-4) /hpf Calcium Oxalate Crystal Rare H (None) /hpf Urine Bacteria Many H (None) /hpf Urine Mucus Few H (None) /hpf Urine Yeast (Budding) Rare H (None) /hpf Urine HCG, Qual (Not Detectd) 04/10/18 Range/Units 19:30 WBC (3.8-10.6) k/uL RBC (3.80-5.40) m/uL Hgb (11.4-16.0) gm/dL Hct (34.0-46.0) % MCV (80.0-100.0) fL MCH (25.0-35.0) pg MCHC (31.0-37.0) g/dL RDW (11.5-15.5) % Plt Count (150-450) k/uL Neutrophils % % Lymphocytes % % Monocytes % % Eosinophils % % Basophils % % Neutrophils # (1.3-7.7) k/uL Lymphocytes # (1.0-4.8) k/uL Monocytes # (0-1.0) k/uL Eosinophils # (0-0.7) k/uL Basophils # (0-0.2) k/uL Sodium (137-145) mmol/L Potassium (3.5-5.1) mmol/L Chloride (98-107) mmol/L Carbon Dioxide (22-30) mmol/L Anion Gap mmol/L BUN (7-17) mg/dL Creatinine (0.52-1.04) mg/dL Est GFR (CKD-EPI)AfAm (>60 ml/min/1.73 sqM) Est GFR (CKD-EPI)NonAf (>60 ml/min/1.73 sqM) Glucose (74-99) mg/dL Calcium (8.4-10.2) mg/dL Total Bilirubin (0.2-1.3) mg/dL AST (14-36) U/L ALT (9-52) U/L Alkaline Phosphatase (38-126) U/L Total Protein (6.3-8.2) g/dL Albumin (3.5-5.0) g/dL Amylase (30-110) U/L Lipase (23-300) U/L Urine Color Urine Appearance (Clear) Urine pH (5.0-8.0) Ur Specific [place] (1.001-1.035) Urine Protein (Negative) Urine Glucose (UA) (Negative) Urine Ketones (Negative) Urine Blood (Negative) Urine Nitrite (Negative) Urine Bilirubin (Negative) Urine Urobilinogen (<2.0) mg/dL Ur Leukocyte Esterase (Negative) Urine RBC (0-5) /hpf Urine WBC (0-5) /hpf Ur Squamous Epith Cells (0-4) /hpf Calcium Oxalate Crystal (None) /hpf Urine Bacteria (None) /hpf Urine Mucus (None) /hpf Urine Yeast (Budding) (None) /hpf Urine HCG, Qual Not Detected (Not Detectd) - Radiology Data Radiology results: report reviewed, image reviewed 2 views of the abdomen are obtained. Report is reviewed in its entirety. Impression by Dr. Tello Munoz shows negative examination. Disposition Clinical Impression: Kidney stone on left side Disposition: HOME SELF-CARE Condition: Good Instructions: Kidney Stones (ED), How to Strain Your Urine (ED) Additional Instructions: Increase fluids. Follow up with your urologist for recheck as soon as possible. Take medications as directed. Return immediately for any new, worsening, or concerning symptoms. Prescriptions: Hydrocodone/Acetaminophen [[place] 5-325] 1 tab PO Q6HR PRN #12 tab PRN Reason: Pain Ketorolac [Toradol] 10 mg PO Q6HR PRN #12 tab PRN Reason: Pain Ondansetron [Zofran ODT] 4 mg PO Q8HR PRN #10 tab PRN Reason: Nausea Is patient prescribed a controlled substance at d/c from ED?: No Referrals: Deniz Jarrell DO [Primary Care Provider] - 1-2 days Time of Disposition: 21:30
[2018-04-10 19:34] LABS: Basophils % (A) 0 %; Eosinophils # (A) 0.1 k/uL (0-0.7); Eosinophils % (A) 1 %; HGB 13.9 gm/dL (11.4-16.0); Lymphocytes # (A) 2.9 k/uL (1.0-4.8); Lymphocytes % (A) 24 %; MCH 29.1 pg (25.0-35.0); MCHC 33.1 g/dL (31.0-37.0); MCV 88.1 fL (80.0-100.0); Mean Platelet Volume 6.7; Monocytes # (A) 0.6 k/uL (0-1.0); Monocytes % (A) 5 %; Neutrophils # (A) 8.6 k/uL (1.3-7.7); Neutrophils % (A) 69 %; Platelet Count 402 k/uL (150-450); RBC 4.77 m/uL (3.80-5.40); RDW 12.4 % (11.5-15.5); WBC 12.4 k/uL (3.8-10.6)
[2018-04-10 19:39] LABS: ALT 24 U/L (9-52); AST 23 U/L (14-36); Albumin 4.6 g/dL (3.5-5.0); Alkaline Phosphatase 119 U/L (38-126); Amylase 52 U/L (30-110); Anion Gap 10 mmol/L; Blood Urea Nitrogen 15 mg/dL (7-17); Calcium 9.9 mg/dL (8.4-10.2); Carbon Dioxide 25 mmol/L (22-30); Chloride 107 mmol/L (98-107); Glucose 88 mg/dL (74-99); Lipase 71 U/L (23-300); Potassium 3.8 mmol/L (3.5-5.1); Sodium 142 mmol/L (137-145); Total Bilirubin 0.5 mg/dL (0.2-1.3); Total Protein 8.1 g/dL (6.3-8.2)
[2018-04-10 19:43] LABS: Appearance,Urine Cloudy (Clear); Bacteria,Urine Many /hpf; Bilirubin,Urine Negative (Negative); Blood,Urine Moderate (Negative); Budding Yeast,Urine Rare /hpf; Calcium Oxalate Crystals,Urine Rare /hpf; Color,Urine Yellow; Glucose,Urine (UA) Negative (Negative); Ketones,Urine Negative (Negative); Leukocyte Esterase,Urine Negative (Negative); Mucus,Urine Few /hpf; Nitrite,Urine Negative (Negative); Protein,Urine Trace (Negative); RBC,Urine >182 /hpf (0-5); Specific Gravity,Urine 1.016 (1.001-1.035); Squamous Epithelial Cell,Urine 5 /hpf (0-4); Urobilinogen,Urine <2.0 mg/dL (<2.0); WBC,Urine 5 /hpf (0-5)
--- NOTE | 2018-04-10 21:02 | XR ---
EXAMINATION TYPE: XR KUB 2 views DATE OF EXAM: 04/10/2018 COMPARISON: NONE HISTORY: Left flank pain and nausea and vomiting TECHNIQUE: 2 upright views FINDINGS: Visualized lung bases and pleural spaces are negative. No pneumoperitoneum or pneumatosis, and the bowel gas pattern is normal. No acute skeletal or soft tissue findings. No calcifications over the renal shadows or expected course of the ureters or the urinary bladder. IMPRESSION: Negative examination.
[2018-04-10] MEDS ORDERED: HYDROmorphone 1 MG/ML 1 ML SYRINGE IVP STA (21:07)
[2018-04-10] MEDS ORDERED: TAMSULOSIN 0.4 MG CAP.ER.24H PO STA (21:07)
[2018-04-10 21:36] VITALS: BP 117/90; PULSE 94; TEMP 97.5
== END 2018-04-10 21:55 | disposition home or self-care (01) ==
LOC: EC 18:21
DX: N20.0 Calculus of kidney (principal); Z88.0 Allergy status to penicillin; Z88.5 Allergy status to narcotic agent; Z91.018 Allergy to other foods; Z88.8 Allergy status to other drugs, medicaments and biological substances; Z88.2 Allergy status to sulfonamides; Z88.1 Allergy status to other antibiotic agents; Z91.013 Allergy to seafood
CPT/HCPCS: 36415; 80053; 82150; 83690; 85025; 81001; 81025; 87086; 74018; 99284; 96374; 96375 ×3; 96361 ×2; J2405; J1885; J2270; J1170

== ENCOUNTER 2018-04-29 23:22 | Emergency (ER) | payer MEDICAID ==
[2018-04-29] MEDS ORDERED: FAMOTIDINE 20 MG/2 ML VIAL IV STA (23:28)
[2018-04-29] MEDS ORDERED: diphenhydrAMINE 50 MG/ML 1 ML VIAL IVP STA (23:28)
[2018-04-29] MEDS ORDERED: EPINEPHrine 1 MG/ML 1 ML AMP IM STA (23:28)
[2018-04-29] MEDS ORDERED: methylPREDNISolone SOD SUCCI 125 MG/2 ML VIAL IV STA (23:28)
[2018-04-29] MEDS ORDERED: IPRATROPIUM-ALBUTEROL 3 ML NEB INHALATION STA (23:30)
[2018-04-29 23:32] VITALS: TEMP 98.9
--- NOTE | 2018-04-29 23:38 | ED ---
Allergic Reaction HPI - General Stated complaint: allergic rx Time Seen by Provider: 04/29/18 23:28 Source: patient, family Mode of arrival: ambulatory Limitations: no limitations - History of Present Illness Initial Comments: Pamella is a 22-year-old female with a history of multiple ALLERGIES who presents the emergency department today for possible ALLERGIC reaction. History is provided mostly by the patient's at bedside. He reports that throughout the week the patient has been suffering from a sore throat and was evaluated an outside facility advised that she likely has viral pharyngitis , strep cultures were pending. She was not on any antibiotics. He reports that over the past couple of days she has completely lost her voice. He reports that this evening they went for dinner at a [employer] restaurant that does serve multiple dishes that contained shrimp. The patient did not order any dishes that contained shrimp but after eating she began to feel flushed, have wheezing, feel nauseated, have nonbloody nonbilious emesis prior to arrival. brought her to the ER for evaluation of possible ALLERGIC reaction. - Related Data Previous Rx's Medication Instructions Recorded Hydrocodone/Acetaminophen [[place] 1 tab PO Q6HR PRN #12 tab 04/10/18 5-325] Ketorolac [Toradol] 10 mg PO Q6HR PRN #12 tab 04/10/18 Ondansetron [Zofran ODT] 4 mg PO Q8HR PRN #10 tab 04/10/18 EPINEPHrine [Epipen 2-Jayson] 0.3 mg IJ ONCE PRN #2 auto.injct 04/30/18 Allergies Allergy/AdvReac Type Severity Reaction Status Date / Time amoxicillin [Amoxicillin] Allergy Rash/Hives Verified 04/29/18 23:32 azithromycin Allergy Rash/Hives Verified 04/29/18 23:32 [From Zithromax Z-Jayson] cashew nut Allergy Unknown Verified 04/29/18 23:32 codeine Allergy Rapid Verified 04/29/18 23:32 Heart Rate ethinyl estradiol Allergy Rash/Hives Verified 04/29/18 23:32 [From (21)] norethindrone acetate Allergy Rash/Hives Verified 04/29/18 23:32 [From (21)] shellfish derived [Shrimp] Allergy Unknown Verified 04/29/18 23:32 Sulfa (Sulfonamide Allergy Unknown Verified 04/29/18 23:32 Antibiotics) tuna oil Allergy Unknown Verified 04/29/18 23:32 Review of Systems ROS Statement: Those systems with pertinent positive or pertinent negative responses have been documented in the HPI. ROS Other: All systems not noted in ROS Statement are negative. Past Medical History Past Medical History: Thyroid Disorder Additional Past Medical History / Comment(s): hypothyroidism kidney stones History of Any Multi-Drug Resistant Organisms: None Reported Past Surgical History: No Surgical Hx Reported Additional Past Surgical History / Comment(s): cysto for kidney stone removal Past Psychological History: Anxiety Smoking Status: Never smoker Past Alcohol Use History: None Reported Past Drug Use History: None Reported General Exam - General Exam Comments Initial Comments: Physical Exam GENERAL: Acute respiratory distress HENT: Normocephalic, Atraumatic. EYES: PERRL, EOMI PULMONARY: Wheezing in all lung [place] No stridor CARDIOVASCULAR: Tachycardic ABDOMEN: Soft and nontender with normal bowel sounds. SKIN: Flushed : Deferred NEUROLOGIC: Patient is alert and oriented x3. Moving all extremities spontaneously MUSCULOSKELETAL: Normal extremities with adequate strength and full range of motion. No lower extremity swelling or edema. No calf tenderness. PSYCHIATRIC: Normal psychiatric evaluation. Limitations: no limitations Limitations: no limitations Course Vital Signs 04/29/18 04/29/18 04/29/18 23:26 23:31 23:45 Temperature 98.9 F Pulse Rate 152 H 141 H 160 H Respiratory 40 H 26 H Rate Blood Pressure 164/104 O2 Sat by Pulse 99 100 Oximetry 04/30/18 04/30/18 04/30/18 00:00 00:13 00:20 Temperature Pulse Rate 118 H 136 H Respiratory 20 26 H Rate Blood Pressure 126/77 O2 Sat by Pulse 100 Oximetry 04/30/18 04/30/18 04/30/18 00:30 01:00 01:30 Temperature Pulse Rate 115 H 112 H 111 H Respiratory 19 22 23 Rate Blood Pressure 114/78 115/76 117/78 O2 Sat by Pulse 97 98 97 Oximetry 04/30/18 02:00 Temperature Pulse Rate 103 H Respiratory Rate Blood Pressure 125/81 O2 Sat by Pulse 97 Oximetry Medical Decision Making - Medical Decision Making Patient was seen and evaluated immediately upon arrival to the emergency department patient was noted be in moderate respiratory distress flushed, hives on the arms, nausea, is concerning for acute anaphylactic reaction IV access was obtained, meds were given Respiratory therapy at bedside for racemic epinephrine Patient was reevaluated after medications, report some improvement in her symptoms after medications so she does still feel her heart is racing and is still having some wheezing Patient was reevaluated around 1 AM, this time she sleeping comfortably, heart rate has improved and is in the low 100s, oxygen saturation is in the high 90s on room air Patient was observed for 3 hours after administration of epinephrine. She continues to sleep comfortably, heart rate in the low 100s, oxygen saturation in the high 90s, at this time she is comfortable for plan for discharge home. Patient does not have an EpiPen at home and will be prescribed a 2 pack of EpiPen's upon discharge. Return parameters were discussed, the slight possibility of biphasic anaphylaxis was discussed with the patient and her boyfriend at bedside who will remain with her. All questions pertaining to care were answered and the patient was discharged home in stable condition. - EKG Data -: EKG Interpreted by Me EKG Comments: EKG obtained at 2336, rate is 143 rhythm is sinus tachycardia, normal axis, normal intervals, [place] 120, QRS 84, QTC 398. There are no acute ST elevations or depressions no evidence of acute ischemia or infarction. Disposition Clinical Impression: Allergic reaction Disposition: HOME SELF-CARE Condition: Good Instructions: Anaphylaxis (ED) Prescriptions: EPINEPHrine [Epipen 2-Jayson] 0.3 mg IJ ONCE PRN #2 auto.injct PRN Reason: Anaphylaxis Is patient prescribed a controlled substance at d/c from ED?: No Referrals: Deniz Jarrell DO [Primary Care Provider] - 1-2 days
[2018-04-29] MEDS ORDERED: RACEPINEPHRINE 2.25% NEB 0.5 ML NEBU INHALATION STA (23:50)
[2018-04-30 02:09] VITALS: BP 125/81
[2018-04-30 02:38] VITALS: PULSE 121; RESP 22
== END 2018-04-30 02:55 | disposition home or self-care (01) ==
LOC: EC 23:22
DX: T78.1XXA Other adverse food reactions, not elsewhere classified, initial encounter (principal); R06.2 Wheezing; R11.2 Nausea with vomiting, unspecified; L50.9 Urticaria, unspecified; Z88.0 Allergy status to penicillin; Z88.1 Allergy status to other antibiotic agents; Z91.018 Allergy to other foods; Z88.5 Allergy status to narcotic agent; Z88.8 Allergy status to other drugs, medicaments and biological substances; Z91.013 Allergy to seafood; Z88.2 Allergy status to sulfonamides; Y92.511 Restaurant or cafe as the place of occurrence of the external cause
CPT/HCPCS: 99285; 96374; 96375 ×2; 96372; 94640; J0171; J1200; J2930

== ENCOUNTER → 2018-06-25 | Outpatient (CLI) | payer MEDICAID ==
--- NOTE | 2018-06-25 11:54 | XR ---
EXAMINATION TYPE: XR abdomen 1V DATE OF EXAM: 06/25/2018 COMPARISON: 04/10/2018 INDICATION: Urethral stones TECHNIQUE: Single view abdomen frontal projection supine view FINDINGS: There is a normal bowel gas pattern. Psoas margins are normal. No organomegaly is present. No suspicious renal or ureteral stones are identified. IMPRESSION: 1. Unremarkable Abdomen
== END ==
LOC: RADXRMAIN 11:03
PROVIDERS: ATTEND Urology
DX: N20.1 Calculus of ureter (principal)
CPT/HCPCS: 74018

== ENCOUNTER 2018-08-13 11:41 | Inpatient (IN) | payer MEDICAID ==
[2018-08-13] MEDS ORDERED: ALBUTEROL NEBULIZED 2.5 MG/3 ML INHALATION STA (13:16)
[2018-08-13] MEDS ORDERED: IPRATROPIUM 0.5 MG/2.5 ML NEBU INHALATION STA (13:16)
[2018-08-13] MEDS ORDERED: SODIUM CHLORIDE 0.9% 1,000 ML IV ONE ×2 (13:17→14:48)
[2018-08-13] MEDS ORDERED: DEXAMETHASONE SOD PHOSPHATE 10 MG/ML 1 ML VIAL IV STA (13:17)
[2018-08-13] MEDS ORDERED: ACETAMINOPHEN TAB 500 MG TAB PO STA (13:17)
--- NOTE | 2018-08-13 13:26 | ED ---
General Adult HPI - General Chief complaint: Shortness of Breath Stated complaint: SHANIA Time Seen by Provider: 08/13/18 13:12 Source: patient, RN notes reviewed, old records reviewed Mode of arrival: ambulatory Limitations: no limitations - History of Present Illness Initial comments: 23-year-old female presents with one-week history of URI symptoms. Over the past 24 hours patient has had worsening dyspnea, cough, rhinorrhea and nasal congestion as well as fever. She was seen by her primary care physician yesterday, there was, concern for developing reactive airway disease and asthma. Patient has no previous history of asthma. Denies vomiting or diarrhea. Denies current . Denies lower extremity pain or swelling. - Related Data Home Medications Medication Instructions Recorded Confirmed Ciprofloxacin HCl [Cipro] 500 mg PO BID 08/13/18 08/13/18 predniSONE 20 mg PO BID 08/13/18 08/13/18 Allergies Allergy/AdvReac Type Severity Reaction Status Date / Time amoxicillin [Amoxicillin] Allergy Rash/Hives Verified 08/13/18 12:59 azithromycin Allergy Rash/Hives Verified 08/13/18 12:59 [From Zithromax Z-Jayson] cashew nut Allergy Unknown Verified 08/13/18 12:59 codeine Allergy Rapid Verified 08/13/18 12:59 Heart Rate egg Allergy Dyspnea Verified 08/13/18 12:59 ethinyl estradiol Allergy Rash/Hives Verified 08/13/18 12:59 [From (21)] norethindrone acetate Allergy Rash/Hives Verified 08/13/18 12:59 [From ()] shellfish derived [Shrimp] Allergy Unknown Verified 08/13/18 12:59 Sulfa (Sulfonamide Allergy Unknown Verified 08/13/18 12:59 Antibiotics) tuna oil Allergy Unknown Verified 08/13/18 12:59 Review of Systems ROS Statement: Those systems with pertinent positive or pertinent negative responses have been documented in the HPI. ROS Other: All systems not noted in ROS Statement are negative. Past Medical History Past Medical History: Thyroid Disorder Additional Past Medical History / Comment(s): hypothyroidism kidney stones History of Any Multi-Drug Resistant Organisms: None Reported Past Surgical History: No Surgical Hx Reported Additional Past Surgical History / Comment(s): cysto for kidney stone removal Past Psychological History: Anxiety Smoking Status: Never smoker Past Alcohol Use History: None Reported Past Drug Use History: None Reported General Exam Limitations: no limitations General appearance: alert, in no apparent distress Head exam: Present: atraumatic, normocephalic Eye exam: Present: normal appearance, PERRL ENT exam: Present: mucous membranes dry, other (Nasal congestion) Neck exam: Present: normal inspection. Absent: tenderness, meningismus Respiratory exam: Present: wheezes, rhonchi, decreased breath sounds Cardiovascular Exam: Present: normal rhythm, tachycardia GI/Abdominal exam: Present: soft. Absent: distended, tenderness, guarding Extremities exam: Present: normal inspection, normal capillary refill. Absent: pedal edema, calf tenderness Back exam: Present: normal inspection, full ROM Neurological exam: Present: alert, oriented X3, CN II-XII intact. Absent: motor sensory deficit Psychiatric exam: Present: normal affect, normal mood Skin exam: Present: warm, dry, intact. Absent: cyanosis, diaphoretic Course Vital Signs 08/13/18 08/13/18 08/13/18 12:35 13:34 13:47 Temperature 98.4 F Pulse Rate 119 H 124 H 120 H Respiratory 20 Rate Blood Pressure 144/84 O2 Sat by Pulse 99 Oximetry 08/13/18 15:35 Temperature 98.6 F Pulse Rate 111 H Respiratory 18 Rate Blood Pressure 134/91 O2 Sat by Pulse 97 Oximetry Medical Decision Making - Medical Decision Making 23-year-old female with one-week history of URI symptoms, cough, dyspnea, symptoms significantly worsened over the past 24 hours. On exam patient is febrile, tachycardic, decreased air entry bilaterally with rhonchi and wheezing. Chest x-ray obtained, consistent with retrocardiac pneumonia. She has a significantly elevated white blood cell count 19.4, normal CMP, influenza negative. She is given albuterol, Atrovent, steroids, antibiotics in the emergency department. On reevaluation she is not feeling at all improved. She has been on treatment as an outpatient for the past several days. She will be admitted for ongoing treatment of community-acquired pneumonia and reactive airway disease. - Lab Data Result diagrams: 08/13/18 13:29 08/13/18 13:29 Lab Results 08/13/18 08/13/18 08/13/18 Range/Units 13:29 13:29 13:29 WBC 19.4 H (3.8-10.6) k/uL RBC 5.37 (3.80-5.40) m/uL Hgb 15.4 (11.4-16.0) gm/dL Hct 45.7 (34.0-46.0) % MCV 85.0 (80.0-100.0) fL MCH 28.6 (25.0-35.0) pg MCHC 33.6 (31.0-37.0) g/dL RDW 13.8 (11.5-15.5) % Plt Count 455 H (150-450) k/uL Neutrophils % 70 % Lymphocytes % 22 % Monocytes % 5 % Eosinophils % 1 % Basophils % 1 % Neutrophils # 13.5 H (1.3-7.7) k/uL Lymphocytes # 4.3 (1.0-4.8) k/uL Monocytes # 0.9 (0-1.0) k/uL Eosinophils # 0.3 (0-0.7) k/uL Basophils # 0.1 (0-0.2) k/uL Sodium 139 (137-145) mmol/L Potassium 4.0 (3.5-5.1) mmol/L Chloride 107 (98-107) mmol/L Carbon Dioxide 21 L (22-30) mmol/L Anion Gap 11 mmol/L BUN 20 H (7-17) mg/dL Creatinine 0.73 (0.52-1.04) mg/dL Est GFR (CKD-EPI)AfAm >90 (>60 ml/min/1.73 sqM) Est GFR (CKD-EPI)NonAf >90 (>60 ml/min/1.73 sqM) Glucose 85 (74-99) mg/dL Plasma Lactic Acid Ross (0.7-2.0) mmol/L Calcium 9.7 (8.4-10.2) mg/dL Total Bilirubin 1.0 (0.2-1.3) mg/dL AST 17 (14-36) U/L ALT 31 (9-52) U/L Alkaline Phosphatase 126 (38-126) U/L Total Protein 7.6 (6.3-8.2) g/dL Albumin 4.4 (3.5-5.0) g/dL Influenza Type A RNA Not Detected (Not Detectd) Influenza Type B (PCR) Not Detected (Not Detectd) 08/13/18 08/13/18 Range/Units 13:29 15:28 WBC (3.8-10.6) k/uL RBC (3.80-5.40) m/uL Hgb (11.4-16.0) gm/dL Hct (34.0-46.0) % MCV (80.0-100.0) fL MCH (25.0-35.0) pg MCHC (31.0-37.0) g/dL RDW (11.5-15.5) % Plt Count (150-450) k/uL Neutrophils % % Lymphocytes % % Monocytes % % Eosinophils % % Basophils % % Neutrophils # (1.3-7.7) k/uL Lymphocytes # (1.0-4.8) k/uL Monocytes # (0-1.0) k/uL Eosinophils # (0-0.7) k/uL Basophils # (0-0.2) k/uL Sodium (137-145) mmol/L Potassium (3.5-5.1) mmol/L Chloride (98-107) mmol/L Carbon Dioxide (22-30) mmol/L Anion Gap mmol/L BUN (7-17) mg/dL Creatinine (0.52-1.04) mg/dL Est GFR (CKD-EPI)AfAm (>60 ml/min/1.73 sqM) Est GFR (CKD-EPI)NonAf (>60 ml/min/1.73 sqM) Glucose (74-99) mg/dL Plasma Lactic Acid Ross 1.4 1.2 (0.7-2.0) mmol/L Calcium (8.4-10.2) mg/dL Total Bilirubin (0.2-1.3) mg/dL AST (14-36) U/L ALT (9-52) U/L Alkaline Phosphatase (38-126) U/L Total Protein (6.3-8.2) g/dL Albumin (3.5-5.0) g/dL Influenza Type A RNA (Not Detectd) Influenza Type B (PCR) (Not Detectd) Disposition Clinical Impression: Community acquired pneumonia Disposition: ADMITTED IP TO THIS HOSP Condition: Stable Is patient prescribed a controlled substance at d/c from ED?: No Referrals: Deniz Jarrell DO [Primary Care Provider] - 1-2 days Decision to Admit Reason: Admit from EC Decision Date: 08/13/18 Decision Time: 15:53
[2018-08-13 14:00] LABS: Basophils # (A) 0.1 k/uL (0-0.2); Basophils % (A) 1 %; Eosinophils # (A) 0.3 k/uL (0-0.7); Eosinophils % (A) 1 %; HCT 45.7 % (34.0-46.0); HGB 15.4 gm/dL (11.4-16.0); Lymphocytes # (A) 4.3 k/uL (1.0-4.8); Lymphocytes % (A) 22 %; MCH 28.6 pg (25.0-35.0); MCHC 33.6 g/dL (31.0-37.0); Mean Platelet Volume 7.2; Monocytes # (A) 0.9 k/uL (0-1.0); Monocytes % (A) 5 %; Neutrophils # (A) 13.5 k/uL (1.3-7.7); Neutrophils % (A) 70 %; Platelet Count 455 k/uL (150-450); RBC 5.37 m/uL (3.80-5.40); RDW 13.8 % (11.5-15.5); WBC 19.4 k/uL (3.8-10.6)
[2018-08-13 14:04] LABS: ALT 31 U/L (9-52); AST 17 U/L (14-36); Albumin 4.4 g/dL (3.5-5.0); Alkaline Phosphatase 126 U/L (38-126); Anion Gap 11 mmol/L; Blood Urea Nitrogen 20 mg/dL (7-17); Calcium 9.7 mg/dL (8.4-10.2); Carbon Dioxide 21 mmol/L (22-30); Chloride 107 mmol/L (98-107); Glucose 85 mg/dL (74-99); Sodium 139 mmol/L (137-145); Total Protein 7.6 g/dL (6.3-8.2)
--- NOTE | 2018-08-13 14:08 | XR ---
EXAMINATION TYPE: XR chest 2V DATE OF EXAM: 08/13/2018 COMPARISON: Chest x-ray October 16, 2013. HISTORY: Shortness of breath for one week. TECHNIQUE: Frontal and lateral views of the chest are obtained. FINDINGS: Confirmed on 2 views there is retrocardiac consolidation with air bronchograms. Right lung is clear. No pleural effusion or pneumothorax is noted bilaterally. The cardiac silhouette size is w ithin normal limits. The osseous structures are intact. IMPRESSION: New retrocardiac consolidation with air bronchograms suspicious for focal pneumonia. Cor relate clinically.
[2018-08-13] MEDS ORDERED: cefTRIAXone IN SWFI 1,000 MG/10 ML SYRINGE IVP STA (14:48)
[2018-08-13] MEDS ORDERED: AZITHROMYCIN 500 MG in SODIUM CHLORIDE 0.9% 250 ML IVPB STA (14:49)
[2018-08-13] MEDS ORDERED: IPRATROPIUM-ALBUTEROL 3 ML NEB INHALATION PRN (15:49)
[2018-08-13] MEDS: SODIUM CHLORIDE 0.9% 1,000 ML IV SCH (16:45)
[2018-08-13] MEDS: IPRATROPIUM-ALBUTEROL 3 ML NEB INHALATION SCH ×2 (16:46→21:37)
[2018-08-13] MEDS: LEVOFLOXACIN 500 MG TAB PO SCH (18:16)
[2018-08-13] MEDS: ACETAMINOPHEN TAB 500 MG TAB PO PRN (21:02)
[2018-08-14] MEDS: ACETAMINOPHEN TAB 500 MG TAB PO PRN ×2 (00:14→14:10)
[2018-08-14] MEDS: IPRATROPIUM-ALBUTEROL 3 ML NEB INHALATION SCH ×4 (07:58→20:32)
[2018-08-14] MEDS ORDERED: predniSONE 20 MG TAB PO SCH (09:00)
[2018-08-14] MEDS: LEVOFLOXACIN 500 MG TAB PO SCH (09:59)
[2018-08-14 11:17] LABS: Basophils % (A) 0 %; Eosinophils # (A) 0.1 k/uL (0-0.7); Eosinophils % (A) 0 %; HCT 43.6 % (34.0-46.0); HGB 13.6 gm/dL (11.4-16.0); Lymphocytes # (A) 1.1 k/uL (1.0-4.8); Lymphocytes % (A) 6 %; MCHC 31.3 g/dL (31.0-37.0); MCV 89.5 fL (80.0-100.0); Mean Platelet Volume 6.8; Monocytes # (A) 0.6 k/uL (0-1.0); Monocytes % (A) 3 %; Neutrophils # (A) 16.5 k/uL (1.3-7.7); Neutrophils % (A) 89 %; Platelet Count 380 k/uL (150-450); RBC 4.87 m/uL (3.80-5.40); WBC 18.5 k/uL (3.8-10.6)
[2018-08-14 11:24] LABS: Glucose,Whole Blood 97 mg/dL (75-99)
[2018-08-14] MEDS ORDERED: AZITHROMYCIN 500 MG TAB PO SCH (11:30)
[2018-08-14] MEDS: DOXYCYCLINE 100 MG CAP PO SCH ×2 (12:28→21:21)
[2018-08-14] MEDS: methylPREDNISolone SOD SUCCI 125 MG/2 ML VIAL IV SCH ×2 (12:28→18:54)
[2018-08-14 13:33] LABS: Anion Gap 8 mmol/L; Blood Urea Nitrogen 14 mg/dL (7-17); Calcium 9.7 mg/dL (8.4-10.2); Carbon Dioxide 23 mmol/L (22-30); Chloride 110 mmol/L (98-107); Glucose 96 mg/dL (74-99); Potassium 4.6 mmol/L (3.5-5.1); Sodium 141 mmol/L (137-145)
[2018-08-14] MEDS: INSULIN ASPART (NovoLOG) 100 UNIT/ML VIAL SQ SCH ×3 (13:41→21:07)
--- NOTE | 2018-08-14 14:17 | P.HPIM ---
History of Present Illness H&P Date: 08/14/18 This is a 23-year-old female patient of Dr. Jarrell with past medical history of hypothyroidism, kidney stones, generalized anxiety disorder. Patient complains of upper respiratory symptoms vitamin going on for a week and over the past 24 hours developed increasing shortness of breath, cough or rhinorrhea, nasal congestion and fever. She was seen by her primary care physician and was concern for reactive airway disease and asthma. Patient does not been previously diagnosed with asthma was noted have many ALLERGIES. 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 No sick exposures at home. She does state she had a fever 2 nights ago. She was recently started on albuterol nebulizer 2 days ago without improvement of her symptoms. Patient came into [facility] emergency center for evaluation. WBC was 19.4. Lactic acid 1.4. Chest x-ray reveals new retrocardiac consolidation with air bronchograms suspicious for focal pneumonia. Patient was started on azithromycin, Rocephin, one dose of Decadron, nebulizer treatments, IV fluids and admitted to the [facility] floor. Review of Systems Constitutional: Reports chills, Reports fever, Denies fatigue, Denies poor appetite Ears, nose, mouth and throat: Reports nasal congestion, Reports nasal discharge, Denies dental pain, Denies dysphagia, Denies mouth pain, Denies vertigo Cardiovascular: Denies chest pain, Denies edema, Denies lightheadedness, Denies syncope Respiratory: Reports cough, Reports dyspnea, Reports wheezing, Denies excessive sputum, Denies hemoptysis, Denies home oxygen Gastrointestinal: Denies abdominal pain, Denies diarrhea, Denies nausea, Denies vomiting Genitourinary: Denies dysuria Musculoskeletal: Denies frequent falls, Denies gait dysfunction, Denies myalgias Integumentary: Denies wounds Neurological: Denies aphasia, Denies change in mentation, Denies change in speech, Denies seizures Psychiatric: Denies anxiety, Denies depression, Denies sadness/tearfulness, Denies suicidal ideation Endocrine: Denies cold intolerance, Denies low blood sugars, Denies palpitations Past Medical History Past Medical History: Thyroid Disorder Additional Past Medical History / Comment(s): hypothyroidism kidney stones History of Any Multi-Drug Resistant Organisms: None Reported Past Surgical History: No Surgical Hx Reported Additional Past Surgical History / Comment(s): cysto for kidney stone removal and stent placement [address] Hernandez Past Psychological History: Anxiety Smoking Status: Never smoker Past Alcohol Use History: None Reported Additional Past Alcohol Use History / Comment(s): Patient is a lifelong nonsmoker. She denies any marijuana, street drug or alcohol use. She does have a nebulizer at home which was obtained 2 days ago. She denies any oxygen use, CPAP. She lives at home with her . There are 2 dogs in the home. No recent travel. No children. Past Drug Use History: None Reported - Past Family History Brother(s) History Unknown: Yes Additional Family Medical History / Comment(s): Patient has 2 brothers and one had croup as a child. No major medical problems. Sister(s) Additional Family Medical History / Comment(s): Patient has one sister with hypothyroidism. Mother Additional Family Medical History / Comment(s): Mother is alive with history of hypothyroidism. No history of asthma. Father Additional Family Medical History / Comment(s): Father is alive with history of diabetes and renal failure. No history of asthma. Medications and Allergies Home Medications Medication Instructions Recorded Confirmed Type Benzonatate [Tessalon Perles] 100 mg PO TID 08/13/18 08/13/18 History Ciprofloxacin HCl [Cipro] 500 mg PO BID 08/13/18 08/13/18 History predniSONE 20 mg PO BID 08/13/18 08/13/18 History Allergies Allergy/AdvReac Type Severity Reaction Status Date / Time amoxicillin [Amoxicillin] Allergy Rash/Hives Verified 08/13/18 12:59 azithromycin Allergy Rash/Hives Verified 08/13/18 12:59 [From Zithromax Z-Jayson] cashew nut Allergy Unknown Verified 08/13/18 12:59 codeine Allergy Hallucinati Verified 08/13/18 17:10 ons egg Allergy Anaphylaxis Verified 08/13/18 17:10 ethinyl estradiol Allergy Rash/Hives Verified 08/13/18 12:59 [From (21)] Milk Containing Products Allergy Anaphylaxis Verified 08/13/18 16:30 [Dairy] norethindrone acetate Allergy Rash/Hives Verified 08/13/18 12:59 [From (21)] shellfish derived [Shrimp] Allergy Anaphylaxis Verified 08/13/18 17:10 Sulfa (Sulfonamide Allergy Rash/Hives Verified 08/13/18 17:10 Antibiotics) tuna oil Allergy Nausea & Verified 08/13/18 17:10 Vomiting & Diarrhea Physical Exam Vitals: Vital Signs Temp Pulse Pulse Resp BP BP Pulse Ox 08/14/18 08:30 98.1 F 113 H 24 131/85 96 08/14/18 08:10 104 H 08/14/18 07:58 100 08/13/18 23:00 97.9 F 101 H 18 106/71 96 08/13/18 21:48 108 H 08/13/18 21:38 108 H 08/13/18 19:00 97.9 F 103 H 28 H 135/80 94 L 08/13/18 16:49 115 H 08/13/18 16:46 118 H 08/13/18 16:44 98.1 F 115 H 28 H 133/90 95 08/13/18 15:35 98.6 F 111 H 18 134/91 97 08/13/18 13:47 120 H 08/13/18 13:34 124 H 08/13/18 12:35 98.4 F 119 H 20 144/84 99 Intake and Output 08/13/18 08/14/18 08/14/18 22:59 06:59 14:59 Intake Total 580 0 Balance 580 0 Intake: Oral 580 0 Gen: This is a obese 23-year-old female. She is resting in bed appears to be comfortable and in no acute distress. HEENT: Head is atraumatic, normocephalic. Pupils equal, round. Sclerae is anicteric. NECK: Supple. No JVD. No lymphadenopathy. No thyromegaly. LUNGS: Expiratory wheezes and rhonchi throughout. No intercostal retractions. HEART: Regular rate and rhythm. No murmur. ABDOMEN: Soft. Bowel sounds are present. No masses. No tenderness. EXTREMITIES: No pedal edema. No calf tenderness. NEUROLOGICAL: Patient is awake, alert and oriented x3. Cranial nerves 2 through 12 are grossly intact. Results CBC & Chem 7: 08/14/18 10:48 08/14/18 10:48 Labs: Abnormal Lab Results - Last 24 Hours (Table) 08/13/18 08/13/18 Range/Units 13:29 13:29 WBC 19.4 H (3.8-10.6) k/uL Plt Count 455 H (150-450) k/uL Neutrophils # 13.5 H (1.3-7.7) k/uL Carbon Dioxide 21 L (22-30) mmol/L BUN 20 H (7-17) mg/dL Thrombosis Risk Factor Assmnt - DVT/VTE Prophylaxis DVT/VTE Prophylaxis: Pharmacologic Prophylaxis ordered - Choose All That Apply Any of the Below Risk Factors Present?: Yes Each Factor Represents 1 point: Obesity (BMI >25) Thrombosis Risk Factor Assessment Total Risk Factor Score: 1 Thrombosis Risk Factor Assessment Level: Low Risk Assessment and Plan Plan: 1. Reactive airway disease with possible asthma, pneumonia. Continue ceftriaxone and doxycycline, DuoNeb treatments 4 times daily every 4 hours as needed, Solu-Medrol 60 mg IV every 6 hours. 2. History of kidney stones, stable. 3. Hypothyroidism but not currently on medication. TSH and free T4 ordered. 4. DVT prophylaxis. Heparin subcu. 5. GI prophylaxis. Pepcid. Patient will be admitted to the hospital for a minimum of 2 night stay. Discharge plan: Discharge home Impression and plan of care have been directed as dictated by the signing physician. Brandy Wilcox nurse practitioner acting as scribe for signing physician.
[2018-08-14] MEDS: SODIUM CHLORIDE 0.9% 1,000 ML IV SCH (16:02)
[2018-08-14 18:02] LABS: Glucose,Whole Blood 117 mg/dL (75-99)
[2018-08-14 18:31] LABS: T4, Free (Free Thyroxine) 1.38 ng/dL (0.78-2.19)
[2018-08-14 20:52] LABS: Glucose,Whole Blood 119 mg/dL (75-99)
[2018-08-14] MEDS: HEPARIN SODIUM,PORCINE 5,000 UNIT/ML 1 ML VIAL SQ SCH (21:29)
[2018-08-15] MEDS: methylPREDNISolone SOD SUCCI 125 MG/2 ML VIAL IV SCH ×4 (00:23→23:54)
[2018-08-15] MEDS: SODIUM CHLORIDE 0.9% 1,000 ML IV SCH ×2 (03:54→17:44)
[2018-08-15] MEDS: ACETAMINOPHEN TAB 500 MG TAB PO PRN ×2 (06:26→20:27)
[2018-08-15 06:28] LABS: Glucose,Whole Blood 126 mg/dL (75-99)
[2018-08-15] MEDS: INSULIN ASPART (NovoLOG) 100 UNIT/ML VIAL SQ SCH ×4 (06:39→21:10)
[2018-08-15] MEDS: IPRATROPIUM-ALBUTEROL 3 ML NEB INHALATION SCH ×4 (08:18→21:15)
[2018-08-15] MEDS: DOXYCYCLINE 100 MG CAP PO SCH ×2 (08:35→20:28)
[2018-08-15] MEDS: FAMOTIDINE 20 MG TAB PO SCH (08:35)
[2018-08-15] MEDS: IBUPROFEN 600 MG TAB PO PRN ×3 (10:23→22:30)
[2018-08-15] MEDS: HEPARIN SODIUM,PORCINE 5,000 UNIT/ML 1 ML VIAL SQ SCH ×2 (10:25→20:28)
[2018-08-15 11:23] LABS: Basophils # (A) 0.1 k/uL (0-0.2); Basophils % (A) 0 %; Eosinophils # (A) 0.1 k/uL (0-0.7); Eosinophils % (A) 0 %; HCT 41.8 % (34.0-46.0); HGB 13.3 gm/dL (11.4-16.0); Lymphocytes # (A) 1.3 k/uL (1.0-4.8); Lymphocytes % (A) 5 %; MCHC 31.8 g/dL (31.0-37.0); MCV 88.2 fL (80.0-100.0); Mean Platelet Volume 7.3; Monocytes # (A) 0.4 k/uL (0-1.0); Monocytes % (A) 2 %; Neutrophils # (A) 22.6 k/uL (1.3-7.7); Neutrophils % (A) 93 %; Platelet Count 444 k/uL (150-450); RBC 4.74 m/uL (3.80-5.40); RDW 13.2 % (11.5-15.5); WBC 24.4 k/uL (3.8-10.6)
[2018-08-15 11:30] LABS: Anion Gap 11 mmol/L; Blood Urea Nitrogen 19 mg/dL (7-17); Calcium 9.1 mg/dL (8.4-10.2); Carbon Dioxide 20 mmol/L (22-30); Chloride 108 mmol/L (98-107); Glucose 159 mg/dL (74-99); Potassium 4.3 mmol/L (3.5-5.1); Sodium 139 mmol/L (137-145)
[2018-08-15 12:08] LABS: Glucose,Whole Blood 157 mg/dL (75-99)
--- NOTE | 2018-08-15 15:05 | P.PN ---
Subjective Progress Note Date: 08/15/18 This is a 23-year-old female patient of Dr. Jarrell with past medical history of hypothyroidism, kidney stones, generalized anxiety disorder. Patient complains of upper respiratory symptoms vitamin going on for a week and over the past 24 hours developed increasing shortness of breath, cough or rhinorrhea, nasal congestion and fever. She was seen by her primary care physician and was concern for reactive airway disease and asthma. Patient does not been previously diagnosed with asthma was noted have many ALLERGIES. 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 No sick exposures at home. She does state she had a fever 2 nights ago. She was recently started on albuterol nebulizer 2 days ago without improvement of her symptoms. Patient came into [facility] emergency center for evaluation. WBC was 19.4. Lactic acid 1.4. Chest x-ray reveals new retrocardiac consolidation with air bronchograms suspicious for focal pneumonia. Patient was started on azithromycin, Rocephin, one dose of Decadron, nebulizer treatments, IV fluids and admitted to the [facility] floor. 08/15: Patient has been afebrile, heart rate in the 90s to low 100s, blood pressure 133/90, pulse ox 94% on room air. Blood sugars are running between 97 and 126. TSH is 0.265 and free T4 1 0.38. She is currently on Solu-Medrol 60 every 6 hours and will be decreased to 40 mg every 8 hours. Due to tachycardia, d-dimer was ordered and came back at 0.25. Robitussin-DM added for cough. Patient will be monitored overnight and anticipate discharge home tomorrow. Review of Systems Constitutional: Reports chills, Reports fever, Denies fatigue, Denies poor appetite Ears, nose, mouth and throat: Reports nasal congestion, Reports nasal discharge, Denies dental pain, Denies dysphagia, Denies mouth pain, Denies vertigo Cardiovascular: Denies chest pain, Denies edema, Denies lightheadedness, Denies syncope Respiratory: Reports cough, Reports dyspnea, Reports wheezing, Denies excessive sputum, Denies hemoptysis, Denies home oxygen Gastrointestinal: Denies abdominal pain, Denies diarrhea, Denies nausea, Denies vomiting Genitourinary: Denies dysuria Musculoskeletal: Denies frequent falls, Denies gait dysfunction, Denies myalgias Integumentary: Denies wounds Neurological: Denies aphasia, Denies change in mentation, Denies change in speech, Denies seizures Psychiatric: Denies anxiety, Denies depression, Denies sadness/tearfulness, Denies suicidal ideation Endocrine: Denies cold intolerance, Denies low blood sugars, Denies palpitations Objective - Vital Signs Vital signs: Vital Signs Temp 98.2 F 08/15/18 08:38 Pulse 118 H 08/15/18 08:38 Resp 20 08/15/18 08:38 BP 133/90 08/15/18 08:38 Pulse Ox 94 L 08/15/18 08:38 Intake & Output 08/14/18 08/15/18 08/15/18 18:59 06:59 18:59 Intake Total 300 Balance 300 Intake: Oral 300 Other: # Voids 1 # Bowel Movements 3 - Exam Gen: This is a obese 23-year-old female. She is resting in bed appears to be comfortable and in no acute distress. HEENT: Head is atraumatic, normocephalic. Pupils equal, round. Sclerae is anicteric. NECK: Supple. No JVD. No lymphadenopathy. No thyromegaly. LUNGS: Expiratory wheezes and rhonchi throughout. No intercostal retractions. HEART: Regular rate and rhythm. No murmur. ABDOMEN: Soft. Bowel sounds are present. No masses. No tenderness. EXTREMITIES: No pedal edema. No calf tenderness. NEUROLOGICAL: Patient is awake, alert and oriented x3. Cranial nerves 2 through 12 are grossly intact. - Labs CBC & Chem 7: 08/15/18 10:47 08/15/18 10:47 Labs: Abnormal Lab Results - Last 24 Hours (Table) 08/14/18 08/14/18 08/14/18 Range/Units 10:48 10:48 10:48 WBC 18.5 H (3.8-10.6) k/uL Neutrophils # 16.5 H (1.3-7.7) k/uL Chloride 110 H (98-107) mmol/L POC Glucose (mg/dL) (75-99) mg/dL TSH 0.265 L (0.465-4.680) mIU/L 08/14/18 08/14/18 08/15/18 Range/Units 17:36 20:26 06:23 WBC (3.8-10.6) k/uL Neutrophils # (1.3-7.7) k/uL Chloride (98-107) mmol/L POC Glucose (mg/dL) 117 H 119 H 126 H (75-99) mg/dL TSH (0.465-4.680) mIU/L Microbiology - Last 24 Hours (Table) 08/13/18 15:15 Blood Culture - Preliminary Blood No Growth after 24 hours Assessment and Plan Plan: 1. Reactive airway disease with possible asthma, pneumonia. Continue ceftriaxone and doxycycline, DuoNeb treatments 4 times daily every 4 hours as needed, Solu-Medrol decreased to 40 mg every 8 hours. 2. History of kidney stones, stable. 3. Hypothyroidism but not currently on medication. TSH and free T4 as above. 4. DVT prophylaxis. Heparin subcu. 5. GI prophylaxis. Pepcid. Discharge plan: Discharge home Impression and plan of care have been directed as dictated by the signing physician. Brandy Wilcox nurse practitioner acting as scribe for signing physician.
[2018-08-15 16:29] LABS: Glucose,Whole Blood 121 mg/dL (75-99)
[2018-08-15] MEDS ORDERED: MELATONIN 5 MG TABLET PO SCH (21:00)
[2018-08-15 21:08] LABS: Glucose,Whole Blood 176 mg/dL (75-99)
[2018-08-15] MEDS: guaiFENesin-DM 100-10MG/5ML 10 ML CUP PO PRN (22:41)
[2018-08-16] MEDS: IBUPROFEN 600 MG TAB PO PRN (06:54)
[2018-08-16] MEDS: INSULIN ASPART (NovoLOG) 100 UNIT/ML VIAL SQ SCH ×2 (06:57→11:35)
[2018-08-16 07:01] LABS: Glucose,Whole Blood 107 mg/dL (75-99)
[2018-08-16 07:20] LABS: Basophils % (A) 0 %; Eosinophils % (A) 0 %; HCT 41.8 % (34.0-46.0); HGB 13.3 gm/dL (11.4-16.0); Lymphocytes # (A) 1.2 k/uL (1.0-4.8); Lymphocytes % (A) 6 %; MCH 28.4 pg (25.0-35.0); MCHC 31.8 g/dL (31.0-37.0); MCV 89.4 fL (80.0-100.0); Mean Platelet Volume 7.1; Monocytes # (A) 0.4 k/uL (0-1.0); Monocytes % (A) 2 %; Neutrophils # (A) 18.7 k/uL (1.3-7.7); Neutrophils % (A) 92 %; Platelet Count 372 k/uL (150-450); RBC 4.68 m/uL (3.80-5.40); RDW 12.9 % (11.5-15.5); WBC 20.5 k/uL (3.8-10.6)
[2018-08-16 07:28] LABS: Anion Gap 8 mmol/L; Blood Urea Nitrogen 20 mg/dL (7-17); Calcium 9.3 mg/dL (8.4-10.2); Carbon Dioxide 22 mmol/L (22-30); Chloride 109 mmol/L (98-107); Glucose 112 mg/dL (74-99); Potassium 4.4 mmol/L (3.5-5.1); Sodium 139 mmol/L (137-145)
[2018-08-16] MEDS: DOXYCYCLINE 100 MG CAP PO SCH (07:41)
[2018-08-16] MEDS: HEPARIN SODIUM,PORCINE 5,000 UNIT/ML 1 ML VIAL SQ SCH ×2 (07:41→08:06)
[2018-08-16] MEDS: methylPREDNISolone SOD SUCCI 125 MG/2 ML VIAL IV SCH (07:42)
[2018-08-16] MEDS: FAMOTIDINE 20 MG TAB PO SCH (07:42)
[2018-08-16] MEDS: ACETAMINOPHEN TAB 500 MG TAB PO PRN (07:49)
[2018-08-16] MEDS: IPRATROPIUM-ALBUTEROL 3 ML NEB INHALATION SCH (08:11)
[2018-08-16] MEDS: guaiFENesin-DM 100-10MG/5ML 10 ML CUP PO PRN (08:11)
[2018-08-16 11:27] LABS: Glucose,Whole Blood 156 mg/dL (75-99)
[2018-08-16 11:40] VITALS: BP 130/89; PULSE 89; RESP 18; TEMP 98
--- NOTE | 2018-08-16 12:28 | P.DS ---
Providers Date of admission: 08/13/18 15:49 Expected date of discharge: 08/16/18 Attending physician: Alexandria Ware [facility]: This is a 23-year-old female patient of Dr. Jarrell with past medical history of hypothyroidism, kidney stones, generalized anxiety disorder. Patient complains of upper respiratory symptoms vitamin going on for a week and over the past 24 hours developed increasing shortness of breath, cough or rhinorrhea, nasal congestion and fever. She was seen by her primary care physician and was concern for reactive airway disease and asthma. Patient does not been previously diagnosed with asthma was noted have many ALLERGIES. 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 No sick exposures at home. She does state she had a fever 2 nights ago. She was recently started on albuterol nebulizer 2 days ago without improvement of her symptoms. Patient came into [facility] emergency center for evaluation. WBC was 19.4. Lactic acid 1.4. Chest x-ray reveals new retrocardiac consolidation with air bronchograms suspicious for focal pneumonia. Patient was started on azithromycin, Rocephin, one dose of Decadron, nebulizer treatments, IV fluids and [facility] 08/15: Patient has been afebrile, heart rate in the 90s to low 100s, blood pressure 133/90, pulse ox 94% on room air. Blood sugars are running between 97 and 126. TSH is 0.265 and free T4 1 0.38. She is currently on Solu-Medrol 60 every 6 hours and will be decreased to 40 mg every 8 hours. Due to tachycardia, d-dimer was ordered and came back at 0.25. Robitussin-DM added for cough. Patient will be monitored overnight and anticipate discharge home tomorrow. 08/16: Patient states that her breathing status continues to be improved. Solu- Medrol will be transitioned to Medrol Dosepak. She will be discharged home on a course of doxycycline. Patient to follow-up with Dr. Jarrell for further testing regarding possible diagnosis of asthma. Patient will be discharged home today in stable condition. Discharge diagnoses: 1. Reactive airway disease with possible asthma to be evaluated as outpatient, pneumonia. 2. History of kidney stones, stable. 3. Hypothyroidism but not currently on medication. 4. High blood pressure readings secondary to steroids Discharge plan: Discharge home Impression and plan of care have been directed as dictated by the signing physician. Brandy Wilcox nurse practitioner acting as scribe for signing physician. Patient Condition at Discharge: Good Plan - Discharge Summary Discharge Rx Participant: Yes New Discharge Prescriptions: New methylPREDNISolone Dose Pack [Medrol Dose Pack] 4 mg PO DIRECTED #21 package Famotidine [Pepcid] 20 mg PO DAILY tab Doxycycline [Vibramycin] 100 mg PO BID #8 cap Continue Ciprofloxacin HCl [Cipro] 500 mg PO BID predniSONE 20 mg PO BID Benzonatate [Tessalon Perles] 100 mg PO TID Discharge Medication List Benzonatate [Tessalon Perles] 100 mg PO TID 08/13/18 [History] Ciprofloxacin HCl [Cipro] 500 mg PO BID 08/13/18 [History] predniSONE 20 mg PO BID 08/13/18 [History] Doxycycline [Vibramycin] 100 mg PO BID #8 cap 08/16/18 [Rx] Famotidine [Pepcid] 20 mg PO DAILY tab 08/16/18 [Rx] methylPREDNISolone Dose Pack [Medrol Dose Pack] 4 mg PO DIRECTED #21 package 08/16/18 [Rx] Follow up Appointment(s)/Referral(s): Deniz Jarrell DO [Primary Care Provider] - 08/19/18 Activity/Diet/Wound Care/Special Instructions: Continue diet as tolerated. fluids are always encouraged. continue steroids as directed starting tomorrow 08/17/2018. Continue albuterol scheduled next dose 4pm until follow up with physician. Call physician with any questions comments concerns worsening returning symptoms, fever 101.1 or higher, shortness of breath not relieved by treatments, not tolerating diet or fluids, pain that is not controlled by prescribed medications. Discharge Disposition: HOME SELF-CARE
== END 2018-08-16 13:17 | disposition home or self-care (01) | DRG 195 ==
LOC: EC 11:41 → 6PED 15:49
PROVIDERS: ADMIT Family Medicine; ATTEND Family Medicine
DX: J18.9 Pneumonia, unspecified organism (principal); J45.909 Unspecified asthma, uncomplicated; E03.9 Hypothyroidism, unspecified; R03.0 Elevated blood-pressure reading, without diagnosis of hypertension; F41.1 Generalized anxiety disorder; R00.0 Tachycardia, unspecified; T38.0X5A Adverse effect of glucocorticoids and synthetic analogues, initial encounter; Z87.442 Personal history of urinary calculi; Z88.8 Allergy status to other drugs, medicaments and biological substances; Z88.1 Allergy status to other antibiotic agents; Z88.5 Allergy status to narcotic agent; Z91.018 Allergy to other foods; Z88.0 Allergy status to penicillin; Z91.013 Allergy to seafood; Z83.3 Family history of diabetes mellitus; Z83.49 Family history of other endocrine, nutritional and metabolic diseases
CPT/HCPCS: 36415; 71046; 80048; 80053; 82784; 83605; 84439; 84443; 85025; 85379; 87040; 87502; 94640; 94760; 96361; 96374; 96375; 99285

== ENCOUNTER → 2019-01-19 | Outpatient (CLI) | payer MEDICAID | END | disposition home or self-care (01) | LOC: LABWHC1 12:05 | PROVIDERS: ATTEND Internal Medicine Critical Care Medicine | DX: J45.40 Moderate persistent asthma, uncomplicated (principal) | CPT/HCPCS: 36415; 82785; 85008 ==

== ENCOUNTER 2019-02-14 00:38 | Emergency (ER) | payer MEDICAID ==
[2019-02-14] MEDS ORDERED: KETOROLAC 30 MG/ML 1 ML VIAL IVP STA (00:57)
[2019-02-14] MEDS ORDERED: SODIUM CHLORIDE 0.9% 1,000 ML IV STA (00:57)
[2019-02-14] MEDS ORDERED: ONDANSETRON 4 MG/2 ML VIAL IVP STA (00:57)
[2019-02-14 01:15] LABS: Basophils % (A) 0 %; Eosinophils # (A) 0.2 k/uL (0-0.7); Eosinophils % (A) 1 %; HGB 14.6 gm/dL (11.4-16.0); Lymphocytes # (A) 2.4 k/uL (1.0-4.8); Lymphocytes % (A) 18 %; MCH 29.9 pg (25.0-35.0); MCHC 34.8 g/dL (31.0-37.0); MCV 86.1 fL (80.0-100.0); Mean Platelet Volume 6.3; Monocytes # (A) 0.8 k/uL (0-1.0); Monocytes % (A) 6 %; Neutrophils % (A) 74 %; Platelet Count 326 k/uL (150-450); RBC 4.88 m/uL (3.80-5.40); WBC 13.5 k/uL (3.8-10.6)
[2019-02-14 01:18] LABS: Appearance,Urine Clear (Clear); Bilirubin,Urine Negative (Negative); Blood,Urine Negative (Negative); Color,Urine Colorless; Glucose,Urine (UA) Negative (Negative); Ketones,Urine Negative (Negative); Leukocyte Esterase,Urine Negative (Negative); Nitrite,Urine Negative (Negative); Protein,Urine Trace (Negative); Specific Gravity,Urine 1.005 (1.001-1.035); Urobilinogen,Urine <2.0 mg/dL (<2.0)
[2019-02-14 01:32] LABS: ALT 9 U/L (9-52); AST 23 U/L (14-36); African American GFR (CKD) >90 (>60 ml/min/1.73 sqM); Albumin 4.5 g/dL (3.5-5.0); Alkaline Phosphatase 100 U/L (38-126); Amylase 48 U/L (30-110); Anion Gap 11 mmol/L; Blood Urea Nitrogen 19 mg/dL (7-17); Calcium 9.6 mg/dL (8.4-10.2); Carbon Dioxide 23 mmol/L (22-30); Chloride 106 mmol/L (98-107); Glucose 102 mg/dL (74-99); Potassium 3.6 mmol/L (3.5-5.1); Sodium 140 mmol/L (137-145); Total Bilirubin 0.4 mg/dL (0.2-1.3); Total Protein 7.3 g/dL (6.3-8.2)
[2019-02-14] MEDS ORDERED: HYDROmorphone 0.5 MG/0.5 ML SYRINGE IVP STA (01:42)
[2019-02-14] MEDS ORDERED: FAMOTIDINE 20 MG/2 ML VIAL IV STA (01:46)
[2019-02-14] MEDS ORDERED: methylPREDNISolone SOD SUCCI 125 MG/2 ML VIAL IV STA (01:46)
[2019-02-14] MEDS ORDERED: diphenhydrAMINE 50 MG/ML 1 ML VIAL IVP STA (01:46)
--- NOTE | 2019-02-14 02:23 | CT ---
EXAMINATION TYPE: CT abdomen pelvis wo con DATE OF EXAM: 02/14/2019 COMPARISON: 07/20/2016 HISTORY: Left flank pain CT DLP: 623.30 mGycm Automated exposure control for dose reduction was used. TECHNIQUE: Helical acquisition of images was performed from the lung bases through the pelvis. FINDINGS: Lung bases are clear. There is no pleural effusion. Heart size is normal. There is no pericardial eff usion. Liver spleen pancreas gallbladder stomach appear normal. Bile ducts are not dilated. There is no adrenal mass. There is 2 mm calculus lower pole right kidney. There is slight fullness of the right renal pelvis. Left kidney shows no hydronephrosis. Ureters are not dilated. Appendix appea rs normal. There is no retroperitoneal adenopathy. Bladder distends smoothly. There is no inguinal he rnia. There is no evidence of a pelvic mass. Uterus is anteverted. There is small amount of free flui d in the pelvis. There is no mesenteric edema. There is no ascites or free air. There is no sign of a bowel obstruction. IMPRESSION: SMALL RIGHT RENAL CALCULUS. THERE IS CLEARING OF THE 5 MM CALCULUS AT THE RIGHT RENAL PELVIS COMPARED TO LAST EXAM. NO EVIDENCE OF LEFT-SIDED RENAL OBSTRUCTION. NORMAL APPENDIX. THERE IS SMALL AMOUNT OF FREE FLUID IN THE PELVIS DECREASED COMPARED TO LAST EXAM.
[2019-02-14] MEDS ORDERED: LIDOCAINE 5% PATCH TOPICAL STA (02:40)
--- NOTE | 2019-02-14 02:41 | ED ---
Abdominal Pain HPI - General Chief Complaint: Abdominal Pain Stated Complaint: Poss kidney stone Time Seen by Provider: 02/14/19 00:53 Source: patient, family Mode of arrival: wheelchair Limitations: no limitations - History of Present Illness Initial Comments: 23-year-old female patient with past medical history significant for kidney stone presents to the emergency department today for evaluation of left flank pain. Patient states the pain started about an hour and a half ago suddenly. States the pain is sharp and stabbing to his left flank region. She denies any hematuria, dysuria, urinary frequency, urinary urgency. States she has been nauseated but has not vomited. Denies constipation or diarrhea. She denies any chance of . Patient states her pain seems consistent with previous kidney stones. She denies any fever or chills. Patient denies any recent rash, shortness breath, chest pain, numbness, tingling, dizziness, weakness, headache, visual changes, or any other complaints. - Related Data Home Medications Medication Instructions Recorded Confirmed Benzonatate [Tessalon Perles] 100 mg PO TID 08/13/18 08/13/18 Ciprofloxacin HCl [Cipro] 500 mg PO BID 08/13/18 08/13/18 predniSONE 20 mg PO BID 08/13/18 08/13/18 Previous Rx's Medication Instructions Recorded Doxycycline [Vibramycin] 100 mg PO BID #8 cap 08/16/18 Famotidine [Pepcid] 20 mg PO DAILY tab 08/16/18 methylPREDNISolone Dose Pack 4 mg PO DIRECTED #21 package 08/16/18 [Medrol Dose Pack] Allergies Allergy/AdvReac Type Severity Reaction Status Date / Time amoxicillin [Amoxicillin] Allergy Rash/Hives Verified 02/14/19 00:47 azithromycin Allergy Rash/Hives Verified 02/14/19 00:47 [From Zithromax Z-Jayson] cashew nut Allergy Unknown Verified 02/14/19 00:47 codeine Allergy Hallucinati Verified 02/14/19 00:47 ons egg Allergy Anaphylaxis Verified 02/14/19 00:47 ethinyl estradiol Allergy Rash/Hives Verified 02/14/19 00:47 [From (21)] Milk Containing Products Allergy Anaphylaxis Verified 02/14/19 00:47 [Dairy] norethindrone acetate Allergy Rash/Hives Verified 02/14/19 00:47 [From (21)] shellfish derived [Shrimp] Allergy Anaphylaxis Verified 02/14/19 00:47 Sulfa (Sulfonamide Allergy Rash/Hives Verified 02/14/19 00:47 Antibiotics) tuna oil Allergy Nausea & Verified 08/13/18 17:10 Vomiting & Diarrhea Review of Systems ROS Statement: Those systems with pertinent positive or pertinent negative responses have been documented in the HPI. ROS Other: All systems not noted in ROS Statement are negative. Past Medical History Past Medical History: Thyroid Disorder Additional Past Medical History / Comment(s): hypothyroidism kidney stones History of Any Multi-Drug Resistant Organisms: None Reported Past Surgical History: No Surgical Hx Reported Additional Past Surgical History / Comment(s): cysto for kidney stone removal and stent placement [address] Hernandez Past Psychological History: Anxiety Smoking Status: Never smoker Past Alcohol Use History: None Reported Past Drug Use History: None Reported - Past Family History Brother(s) History Unknown: Yes Additional Family Medical History / Comment(s): Patient has 2 brothers and one had croup as a child. No major medical problems. Sister(s) Additional Family Medical History / Comment(s): Patient has one sister with hypothyroidism. Mother Additional Family Medical History / Comment(s): Mother is alive with history of hypothyroidism. No history of asthma. Father Additional Family Medical History / Comment(s): Father is alive with history of diabetes and renal failure. No history of asthma. General Exam Limitations: no limitations General appearance: alert, in no apparent distress, other (This is a well- developed, well-nourished adult female patient in no acute distress. Vital signs upon presentation are temperature 98.4F, pulse 122, respirations 20, blood pressure 130/81, pulse ox 99% on room air.) Eye exam: Present: normal appearance, PERRL, EOMI. Absent: scleral icterus, conjunctival injection, periorbital swelling ENT exam: Present: normal exam, normal oropharynx, mucous membranes moist Respiratory exam: Present: normal lung sounds bilaterally. Absent: respiratory distress, wheezes, rales, rhonchi, stridor Cardiovascular Exam: Present: regular rate, normal rhythm, normal heart sounds. Absent: systolic murmur, diastolic murmur, rubs, gallop, clicks GI/Abdominal exam: Present: soft, tenderness (Generalized), normal bowel sounds. Absent: distended, guarding, rebound, rigid Back exam: Present: normal inspection, CVA tenderness (L). Absent: CVA tenderness (R) Neurological exam: Present: alert, oriented X3, CN II-XII intact Psychiatric exam: Present: normal affect, normal mood Skin exam: Present: warm, dry, intact, normal color. Absent: rash Course Vital Signs 02/14/19 00:45 Temperature 98.4 F Pulse Rate 122 H Respiratory 20 Rate Blood Pressure 130/81 O2 Sat by Pulse 99 Oximetry Medical Decision Making - Medical Decision Making 23-year-old female patient presented to the emergency department today for evaluation of left flank pain. Physical examination did reveal right lower, suprapubic, and left-sided abdominal tenderness. Abdomen was soft. She also exhibited left CVA tenderness. She did have leukocytosis exhibited on labs. Urinalysis was negative for signs of infection or hematuria. Given patient's symptoms and physical exam findings there is some concern for appendicitis so we did perform CT of the abdomen and pelvis. She patient refused contrast. This was normal. No sign of obstructing stone, no sign of appendicitis. Patient was unable to tolerate receiving IV pain medication here in the emergency department. We will give her a Lidoderm patch. She is instructed to follow-up with her primary care physician for recheck in 1-2 days. Return parameters were discussed in detail. She verbalizes understanding and agrees with this plan. - Lab Data Result diagrams: 02/14/19 01:06 02/14/19 01:06 Lab Results 02/14/19 02/14/19 02/14/19 Range/Units 01:06 01:06 01:06 WBC 13.5 H (3.8-10.6) k/uL RBC 4.88 (3.80-5.40) m/uL Hgb 14.6 (11.4-16.0) gm/dL Hct 42.0 (34.0-46.0) % MCV 86.1 (80.0-100.0) fL MCH 29.9 (25.0-35.0) pg MCHC 34.8 (31.0-37.0) g/dL RDW 12.0 (11.5-15.5) % Plt Count 326 (150-450) k/uL Neutrophils % 74 % Lymphocytes % 18 % Monocytes % 6 % Eosinophils % 1 % Basophils % 0 % Neutrophils # 10.0 H (1.3-7.7) k/uL Lymphocytes # 2.4 (1.0-4.8) k/uL Monocytes # 0.8 (0-1.0) k/uL Eosinophils # 0.2 (0-0.7) k/uL Basophils # 0.0 (0-0.2) k/uL Sodium 140 (137-145) mmol/L Potassium 3.6 (3.5-5.1) mmol/L Chloride 106 (98-107) mmol/L Carbon Dioxide 23 (22-30) mmol/L Anion Gap 11 mmol/L BUN 19 H (7-17) mg/dL Creatinine 1.00 (0.52-1.04) mg/dL Est GFR (CKD-EPI)AfAm >90 (>60 ml/min/1.73 sqM) Est GFR (CKD-EPI)NonAf 80 (>60 ml/min/1.73 sqM) Glucose 102 H (74-99) mg/dL Calcium 9.6 (8.4-10.2) mg/dL Total Bilirubin 0.4 (0.2-1.3) mg/dL AST 23 (14-36) U/L ALT 9 (9-52) U/L Alkaline Phosphatase 100 (38-126) U/L Total Protein 7.3 (6.3-8.2) g/dL Albumin 4.5 (3.5-5.0) g/dL Amylase 48 (30-110) U/L Lipase 70 (23-300) U/L Urine Color Colorless Urine Appearance Clear (Clear) Urine pH 7.0 (5.0-8.0) Ur Specific [place] 1.005 (1.001-1.035) Urine Protein Trace H (Negative) Urine Glucose (UA) Negative (Negative) Urine Ketones Negative (Negative) Urine Blood Negative (Negative) Urine Nitrite Negative (Negative) Urine Bilirubin Negative (Negative) Urine Urobilinogen <2.0 (<2.0) mg/dL Ur Leukocyte Esterase Negative (Negative) Urine HCG, Qual (Not Detectd) 02/14/19 Range/Units 01:06 WBC (3.8-10.6) k/uL RBC (3.80-5.40) m/uL Hgb (11.4-16.0) gm/dL Hct (34.0-46.0) % MCV (80.0-100.0) fL MCH (25.0-35.0) pg MCHC (31.0-37.0) g/dL RDW (11.5-15.5) % Plt Count (150-450) k/uL Neutrophils % % Lymphocytes % % Monocytes % % Eosinophils % % Basophils % % Neutrophils # (1.3-7.7) k/uL Lymphocytes # (1.0-4.8) k/uL Monocytes # (0-1.0) k/uL Eosinophils # (0-0.7) k/uL Basophils # (0-0.2) k/uL Sodium (137-145) mmol/L Potassium (3.5-5.1) mmol/L Chloride (98-107) mmol/L Carbon Dioxide (22-30) mmol/L Anion Gap mmol/L BUN (7-17) mg/dL Creatinine (0.52-1.04) mg/dL Est GFR (CKD-EPI)AfAm (>60 ml/min/1.73 sqM) Est GFR (CKD-EPI)NonAf (>60 ml/min/1.73 sqM) Glucose (74-99) mg/dL Calcium (8.4-10.2) mg/dL Total Bilirubin (0.2-1.3) mg/dL AST (14-36) U/L ALT (9-52) U/L Alkaline Phosphatase (38-126) U/L Total Protein (6.3-8.2) g/dL Albumin (3.5-5.0) g/dL Amylase (30-110) U/L Lipase (23-300) U/L Urine Color Urine Appearance (Clear) Urine pH (5.0-8.0) Ur Specific [place] (1.001-1.035) Urine Protein (Negative) Urine Glucose (UA) (Negative) Urine Ketones (Negative) Urine Blood (Negative) Urine Nitrite (Negative) Urine Bilirubin (Negative) Urine Urobilinogen (<2.0) mg/dL Ur Leukocyte Esterase (Negative) Urine HCG, Qual Not Detected (Not Detectd) - Radiology Data Radiology results: report reviewed, image reviewed CT abdomen and pelvis without contrast was obtained. Report was reviewed in its entirety. Impression by Dr. Parra shows small right renal calculus. There is clearing of the 5 mm calculus at the right renal pelvis compared to last exam. No evidence of left sided renal obstruction. Normal appendix. There is small amount of free fluid in the pelvis decreased compared to last exam. Disposition Clinical Impression: Flank pain, Abdominal pain Disposition: HOME SELF-CARE Condition: Good Instructions (If sedation given, give patient instructions): Abdominal Pain (ED), Flank Pain (ED) Additional Instructions: Increase fluids. Rest. Follow-up through primary care physician for recheck in 1-2 days. Return to the emergency department immediately for any new, worsening, or concerning symptoms. Is patient prescribed a controlled substance at d/c from ED?: No Referrals: Deniz Jarrell DO [Primary Care Provider] - 1-2 days Time of Disposition: 02:41
[2019-02-14 03:08] VITALS: BP 130/91; PULSE 96; RESP 18; TEMP 98
== END 2019-02-14 03:09 | disposition home or self-care (01) ==
LOC: EC 00:38
DX: R10.9 Unspecified abdominal pain (principal); R11.0 Nausea; R10.817 Generalized abdominal tenderness; Z32.02 Encounter for pregnancy test, result negative; D72.829 Elevated white blood cell count, unspecified; Z79.51 Long term (current) use of inhaled steroids; Z88.0 Allergy status to penicillin; Z88.1 Allergy status to other antibiotic agents; Z91.018 Allergy to other foods; Z88.5 Allergy status to narcotic agent; Z91.012 Allergy to eggs; Z91.011 Allergy to milk products; Z88.2 Allergy status to sulfonamides; Z88.8 Allergy status to other drugs, medicaments and biological substances
CPT/HCPCS: 36415; 80053; 82150; 83690; 85025; 81003; 81025; 74176; 99284; 96374; 96375 ×2; 96361 ×2; J2405; J1885; J1170

== ENCOUNTER → 2019-10-12 | Outpatient (CLI) | payer MEDICAID | END | disposition home or self-care (01) | LOC: LABWHC1 12:57 | PROVIDERS: ATTEND Family Medicine | DX: U07.1 COVID-19 (principal); J45.909 Unspecified asthma, uncomplicated ==

== ENCOUNTER → 2019-10-21 | Outpatient (CLI) | payer MEDICAID ==
--- NOTE | 2019-10-21 16:41 | CONS ---
CONSULTATION DATE OF SERVICE: 10/21/2019 This patient is a 24-year-old lady who has been evaluated in the sleep center for possible obstructive sleep apnea-hypopnea syndrome. HISTORY OF PRESENT ILLNESS/SLEEP/WAKE EVALUATION: Patient's usual sleep schedule on working days is from 11 p.m. until 7 a.m. and on weekends from 11 p.m. or 1 a.m. until 10 a.m. Sometimes she has problems with falling asleep. She has a TV set in the bedroom. She sleeps on the side position and stomach position with her with snoring and awakenings from sleep several times, with grinding teeth. In the morning the patient wakes up tired, falling asleep during the day, has problems with concentration, irritability and anxiety. [place] Sleepiness Scale is 8. PAST MEDICAL HISTORY: Past medical history is positive for seasonal allergies, kidney stone, asthma, headaches, anxiety, sinus problems. PAST SURGICAL HISTORY: Treatment of kidney stone in 2017. SOCIAL HISTORY: Negative for smoking or using alcohol. REVIEW OF SYSTEMS: Awakenings from sleep, sometimes tiredness and sleepiness during the day. FAMILY HISTORY: Hypertension, heart problems, hyperlipidemia, stroke, arthritis, cancer, narcolepsy, diabetes, acid reflux, mental illness. PHYSICAL EXAMINATION: GENERAL: A pleasant lady without distress. VITAL SIGNS: BP 121/77, HR 90, RR 16, height 5 feet 1 inch, weight 166, body mass index 31.3, temperature 98.6, oxygen saturation at room air 98%. HEENT: PERRLA, EOMI. Evaluation of oropharynx showed tongue protrudes midline. Low position of soft palate. NECK: Supple. No JVD. Thyroid is not palpable. Neck measures 13-1/2 inches in circumference. LUNGS: Clear to percussion and to auscultation. Good air exchange. No wheezing or rhonchi. HEART: S1, S2 regular. No murmurs, gallops or rubs. ABDOMEN: Soft and nontender. Bowel sounds are present. No organomegaly. EXTREMITIES: No clubbing or cyanosis. JINGLE WRITER: Awake, alert, and oriented X3. Cranial nerves 2 to 7 intact. There is no fasciculation or atrophy. noted. No focal deficits observed. IMPRESSION: 1. Snoring, awakenings from sleep, sometimes tiredness and sleepiness during the day, extremely low position of soft palate; possible obstructive sleep apnea-hypopnea syndrome. 2. Seasonal allergies. 3. History of asthma. 4. Obesity. 5. History of kidney stone. 6. History of anxiety. 7. History of sinus problems. PLAN: 1. Polysomnography for evaluation of patient's breathing during sleep. 2. CPAP/BiPAP titration if sleep study confirms obstructive sleep apnea-hypopnea syndrome. 3. Preferable position during sleep on the side. 4. No driving if patient feels any sleepiness. 5. I will see patient for follow up visit to explain results of testing and following plan. Thank you very much for referring this patient for consultation. Sincerely, Luigi العلي MD, PhD, FAASM Diplomat of [place] [employer] [place] [employer] [facility] KELY / DEVAN: [id number] /
== END | disposition home or self-care (01) ==
LOC: SLEEP 14:15
PROVIDERS: ATTEND Internal Medicine
DX: R06.83 Snoring (principal); J30.2 Other seasonal allergic rhinitis; E66.9 Obesity, unspecified; Z68.31 Body mass index [BMI] 31.0-31.9, adult; Z87.09 Personal history of other diseases of the respiratory system; Z86.59 Personal history of other mental and behavioral disorders; Z87.442 Personal history of urinary calculi
CPT/HCPCS: 99211

== ENCOUNTER 2020-08-02 01:50 | Emergency (ER) | payer MEDICAID ==
[2020-08-02 02:14] VITALS: TEMP 98.1
[2020-08-02] MEDS ORDERED: MORPHINE SULFATE 4 MG/ML SYRINGE IV STA (02:31)
[2020-08-02] MEDS ORDERED: SODIUM CHLORIDE 0.9% 1,000 ML IV STA ×2 (02:31)
--- NOTE | 2020-08-02 02:36 | ED ---
Extremity Problem HPI - General Chief complaint: Extremity Problem,Nontraumatic Stated complaint: Swelling and burning in left arm Time Seen by Provider: 08/02/20 02:21 Source: patient, RN notes reviewed, old records reviewed Mode of arrival: ambulatory Limitations: no limitations - History of Present Illness Initial comments: This is a 25-year-old female DF for evaluation of pain left forearm pain with swelling. Has persistent here in the ER. No trauma. No recent fever cough or congestion, no chest pain or shortness of breath. No prior history of similar complaint. No modifying factors to improve symptoms at home MD Complaint: extremity pain, extremity swelling, other (Left arm pain just below elbow) -: days(s) Location: left, upper extremity History of Same: No -: Yes myalgia, Yes arthralgia Radiation: proximal Severity scale (1-10): 4 Quality: stabbing, aching Consistency: constant Improves with: nothing Worsens with: nothing Associated Symptoms: denies other symptoms - Related Data Home Medications Medication Instructions Recorded Confirmed Benzonatate [Tessalon Perles] 100 mg PO TID 08/13/18 08/13/18 Ciprofloxacin HCl [Cipro] 500 mg PO BID 08/13/18 08/13/18 predniSONE [Deltasone] 20 mg PO BID 08/13/18 08/13/18 Previous Rx's Medication Instructions Recorded Doxycycline [Vibramycin] 100 mg PO BID #8 cap 08/16/18 Famotidine [Pepcid] 20 mg PO DAILY tab 08/16/18 methylPREDNISolone Dose Pack 4 mg PO DIRECTED #21 package 08/16/18 [Medrol Dose Pack] Allergies Allergy/AdvReac Type Severity Reaction Status Date / Time amoxicillin [Amoxicillin] Allergy Rash/Hives Verified 02/14/19 00:47 azithromycin Allergy Rash/Hives Verified 02/14/19 00:47 [From Zithromax Z-Jayson] cashew nut Allergy Unknown Verified 02/14/19 00:47 codeine Allergy Hallucinati Verified 02/14/19 00:47 ons egg Allergy Anaphylaxis Verified 02/14/19 00:47 ethinyl estradiol Allergy Rash/Hives Verified 02/14/19 00:47 [From ()] Milk Containing Products Allergy Anaphylaxis Verified 02/14/19 00:47 [Dairy] norethindrone acetate Allergy Rash/Hives Verified 02/14/19 00:47 [From (21)] shellfish derived [Shrimp] Allergy Anaphylaxis Verified 02/14/19 00:47 Sulfa (Sulfonamide Allergy Rash/Hives Verified 02/14/19 00:47 Antibiotics) tuna oil Allergy Nausea & Verified 08/13/18 17:10 Vomiting & Diarrhea Review of Systems ROS Statement: Those systems with pertinent positive or pertinent negative responses have been documented in the HPI. ROS Other: All systems not noted in ROS Statement are negative. Past Medical History Past Medical History: Thyroid Disorder Additional Past Medical History / Comment(s): hypothyroidism kidney stones History of Any Multi-Drug Resistant Organisms: None Reported Past Surgical History: No Surgical Hx Reported Additional Past Surgical History / Comment(s): cysto for kidney stone removal and stent placement [address] Hernandez Past Psychological History: Anxiety Smoking Status: Never smoker Past Alcohol Use History: None Reported Past Drug Use History: None Reported - Past Family History Brother(s) History Unknown: Yes Additional Family Medical History / Comment(s): Patient has 2 brothers and one had croup as a child. No major medical problems. Sister(s) Additional Family Medical History / Comment(s): Patient has one sister with hypothyroidism. Mother Additional Family Medical History / Comment(s): Mother is alive with history of hypothyroidism. No history of asthma. Father Additional Family Medical History / Comment(s): Father is alive with history of diabetes and renal failure. No history of asthma. General Exam Limitations: no limitations General appearance: alert, in no apparent distress Head exam: Present: atraumatic, normocephalic, normal inspection Eye exam: Present: normal appearance, PERRL, EOMI. Absent: scleral icterus, conjunctival injection, periorbital swelling ENT exam: Present: normal exam, mucous membranes moist Neck exam: Present: normal inspection. Absent: tenderness, meningismus, lymphadenopathy Respiratory exam: Present: normal lung sounds bilaterally. Absent: respiratory distress, wheezes, rales, rhonchi, stridor Cardiovascular Exam: Present: regular rate, normal rhythm, normal heart sounds. Absent: systolic murmur, diastolic murmur, rubs, gallop, clicks GI/Abdominal exam: Present: soft, normal bowel sounds. Absent: distended, tenderness, guarding, rebound, rigid Extremities exam: Present: normal inspection, full ROM, normal capillary refill, other (Left tenderness and swelling. Very hyperesthetic). Absent: tenderness, pedal edema, joint swelling, calf tenderness Left Shoulder Exam: Present: normal inspection, full ROM Upper Arm exam: Present: normal inspection, full ROM Elbow exam: Present: normal inspection, full ROM Forearm Wrist exam: Present: tenderness (Just under elbow joint) Hand Wrist exam: Present: full ROM Neurosensory exam: Present: radial nerve intact, ulnar nerve intact, median nerve intact Vascular: Present: radial pulse, ulnar pulse Back exam: Present: normal inspection Neurological exam: Present: alert, oriented X3, CN II-XII intact Psychiatric exam: Present: normal affect, normal mood Skin exam: Present: warm, dry, intact, normal color. Absent: rash Course Vital Signs 08/02/20 08/02/20 02:09 04:49 Temperature 98.1 F Pulse Rate 97 99 Respiratory 18 15 Rate Blood Pressure 158/98 112/72 O2 Sat by Pulse 98 100 Oximetry - Reevaluation(s) Reevaluation #1: Medical record is reviewed Patient has significant symptoms improving here in the ER Spoke patient regarding findings and results questions answered Medical Decision Making - Medical Decision Making 25-year-old female with left arm pain. Patient has significant swelling to the left forearm patient has positive radial and ulnar pulses. She does complain of severe pain in that left forearm no injury. - Lab Data Result diagrams: 08/02/20 02:49 08/02/20 02:49 Lab Results 08/02/20 08/02/20 08/02/20 Range/Units 02:49 02:49 02:49 WBC 11.5 H (3.8-10.6) k/uL RBC 4.56 (3.80-5.40) m/uL Hgb 14.0 (11.4-16.0) gm/dL Hct 40.2 (34.0-46.0) % MCV 88.1 (80.0-100.0) fL MCH 30.7 (25.0-35.0) pg MCHC 34.8 (31.0-37.0) g/dL RDW 12.2 (11.5-15.5) % Plt Count 364 (150-450) k/uL MPV 7.7 Neutrophils % 64 % Lymphocytes % 29 % Monocytes % 5 % Eosinophils % 2 % Basophils % 0 % Neutrophils # 7.3 (1.3-7.7) k/uL Lymphocytes # 3.3 (1.0-4.8) k/uL Monocytes # 0.5 (0-1.0) k/uL Eosinophils # 0.2 (0-0.7) k/uL Basophils # 0.0 (0-0.2) k/uL D-Dimer 0.40 (<0.60) mg/L FEU Sodium 137 (137-145) mmol/L Potassium 4.2 (3.5-5.1) mmol/L Chloride 106 (98-107) mmol/L Carbon Dioxide 22 (22-30) mmol/L Anion Gap 9 mmol/L BUN 19 H (7-17) mg/dL Creatinine 0.59 (0.52-1.04) mg/dL Est GFR (CKD-EPI)AfAm >90 (>60 ml/min/1.73 sqM) Est GFR (CKD-EPI)NonAf >90 (>60 ml/min/1.73 sqM) Glucose 105 H (74-99) mg/dL Plasma Lactic Acid Ross (0.7-2.0) mmol/L Calcium 9.7 (8.4-10.2) mg/dL Phosphorus 3.5 (2.5-4.5) mg/dL Magnesium 1.9 (1.6-2.3) mg/dL Total Bilirubin 0.5 (0.2-1.3) mg/dL AST 25 (14-36) U/L ALT 12 (4-34) U/L Alkaline Phosphatase 108 (38-126) U/L Creatine Kinase 63 (30-135) U/L Troponin I (0.000-0.034) ng/mL Total Protein 8.1 (6.3-8.2) g/dL Albumin 4.8 (3.5-5.0) g/dL 08/02/20 08/02/20 Range/Units 02:49 02:49 WBC (3.8-10.6) k/uL RBC (3.80-5.40) m/uL Hgb (11.4-16.0) gm/dL Hct (34.0-46.0) % MCV (80.0-100.0) fL MCH (25.0-35.0) pg MCHC (31.0-37.0) g/dL RDW (11.5-15.5) % Plt Count (150-450) k/uL MPV Neutrophils % % Lymphocytes % % Monocytes % % Eosinophils % % Basophils % % Neutrophils # (1.3-7.7) k/uL Lymphocytes # (1.0-4.8) k/uL Monocytes # (0-1.0) k/uL Eosinophils # (0-0.7) k/uL Basophils # (0-0.2) k/uL D-Dimer (<0.60) mg/L FEU Sodium (137-145) mmol/L Potassium (3.5-5.1) mmol/L Chloride (98-107) mmol/L Carbon Dioxide (22-30) mmol/L Anion Gap mmol/L BUN (7-17) mg/dL Creatinine (0.52-1.04) mg/dL Est GFR (CKD-EPI)AfAm (>60 ml/min/1.73 sqM) Est GFR (CKD-EPI)NonAf (>60 ml/min/1.73 sqM) Glucose (74-99) mg/dL Plasma Lactic Acid Ross 1.3 (0.7-2.0) mmol/L Calcium (8.4-10.2) mg/dL Phosphorus (2.5-4.5) mg/dL Magnesium (1.6-2.3) mg/dL Total Bilirubin (0.2-1.3) mg/dL AST (14-36) U/L ALT (4-34) U/L Alkaline Phosphatase (38-126) U/L Creatine Kinase (30-135) U/L Troponin I <0.012 (0.000-0.034) ng/mL Total Protein (6.3-8.2) g/dL Albumin (3.5-5.0) g/dL - Radiology Data Radiology results: report reviewed (X-ray elbow and forearm negative for traumatic or acute injury), image reviewed Disposition Clinical Impression: Left arm pain Disposition: HOME SELF-CARE Condition: Good Instructions (If sedation given, give patient instructions): Arm Pain (ED) Is patient prescribed a controlled substance at d/c from ED?: No Referrals: Deniz Jarrell DO [Primary Care Provider] - 1-2 days
[2020-08-02] MEDS ORDERED: HYDROmorphone 1 MG/ML 1 ML SYRINGE IVP STA (03:17)
[2020-08-02 03:30] LABS: Basophils % (A) 0 %; Eosinophils # (A) 0.2 k/uL (0-0.7); Eosinophils % (A) 2 %; HCT 40.2 % (34.0-46.0); Lymphocytes # (A) 3.3 k/uL (1.0-4.8); Lymphocytes % (A) 29 %; MCH 30.7 pg (25.0-35.0); MCHC 34.8 g/dL (31.0-37.0); MCV 88.1 fL (80.0-100.0); Mean Platelet Volume 7.7; Monocytes # (A) 0.5 k/uL (0-1.0); Monocytes % (A) 5 %; Neutrophils # (A) 7.3 k/uL (1.3-7.7); Neutrophils % (A) 64 %; Platelet Count 364 k/uL (150-450); RBC 4.56 m/uL (3.80-5.40); RDW 12.2 % (11.5-15.5); WBC 11.5 k/uL (3.8-10.6)
--- NOTE | 2020-08-02 03:38 | XR ---
EXAM: XR Chest, 1 View CLINICAL HISTORY: ITS.REASON XR Reason: pain TECHNIQUE: Frontal view of the chest. COMPARISON: 08/13/2018 FINDINGS: Lungs: No focal consolidation. The pulmonary vasculature demonstrates no significant radiographic abnormality. Pleural space: Unremarkable. No pneumothorax. No large pleural effusion. Heart: Unremarkable. No cardiomegaly. Mediastinum: No significant abnormality identified. The trachea is midline. Bones/joints: Unremarkable. IMPRESSION: No focal consolidation or acute cardiopulmonary process identified.
--- NOTE | 2020-08-02 03:38 | XR ---
EXAM: XR Left Humerus, 2 or More Views CLINICAL HISTORY: ITS.REASON XR Reason: pain TECHNIQUE: Frontal and lateral views of the left humerus. COMPARISON: No relevant prior studies available. FINDINGS: Bones/joints: Unremarkable. No acute fracture. No dislocation. Soft tissues: No significant overlying soft tissue abnormality identified radiographically. No radiopaque foreign body. IMPRESSION: No acute findings in the left humerus.
--- NOTE | 2020-08-02 03:39 | XR ---
EXAM: XR Left Forearm, 2 Views CLINICAL HISTORY: ITS.REASON XR Reason: pain TECHNIQUE: Frontal and lateral views of the left forearm. COMPARISON: No relevant prior studies available. FINDINGS: Bones/joints: Unremarkable. No acute fracture. No dislocation. Soft tissues: No significant soft tissue abnormality identified radiographically. No radiopaque foreign body. IMPRESSION: No acute findings in the left forearm.
[2020-08-02 04:09] LABS: ALT 12 U/L (4-34); AST 25 U/L (14-36); African American GFR (CKD) >90 (>60 ml/min/1.73 sqM); Albumin 4.8 g/dL (3.5-5.0); Alkaline Phosphatase 108 U/L (38-126); Anion Gap 9 mmol/L; Blood Urea Nitrogen 19 mg/dL (7-17); Calcium 9.7 mg/dL (8.4-10.2); Carbon Dioxide 22 mmol/L (22-30); Chloride 106 mmol/L (98-107); Creatine Kinase 63 U/L (30-135); Glucose 105 mg/dL (74-99); Magnesium 1.9 mg/dL (1.6-2.3); Non-African American GFR(CKD) >90 (>60 ml/min/1.73 sqM); Phosphorus 3.5 mg/dL (2.5-4.5); Potassium 4.2 mmol/L (3.5-5.1); Sodium 137 mmol/L (137-145); Total Bilirubin 0.5 mg/dL (0.2-1.3); Total Protein 8.1 g/dL (6.3-8.2)
[2020-08-02 04:50] VITALS: BP 112/72; PULSE 99; RESP 15
== END 2020-08-02 04:45 | disposition home or self-care (01) ==
LOC: EC 01:50
DX: M79.632 Pain in left forearm (principal); M79.89 Other specified soft tissue disorders; Z79.899 Other long term (current) drug therapy; Z79.52 Long term (current) use of systemic steroids; Z88.0 Allergy status to penicillin; Z88.1 Allergy status to other antibiotic agents; Z91.018 Allergy to other foods; Z88.5 Allergy status to narcotic agent; Z91.011 Allergy to milk products; Z91.012 Allergy to eggs; Z88.8 Allergy status to other drugs, medicaments and biological substances; Z91.013 Allergy to seafood; Z88.2 Allergy status to sulfonamides
CPT/HCPCS: 36415; 85379; 80053; 82550; 83605; 83735; 84100; 84484; 85025; 73060; 73090; 71045; 99284; 96374; 96375; 96361 ×2; J2270; J1170

== ENCOUNTER → 2020-08-24 | Outpatient (CLI) | payer MEDICAID ==
--- NOTE | 2020-08-24 23:20 | MR ---
EXAMINATION TYPE: MR lumbar spine wo con DATE OF EXAM: 08/24/2020 COMPARISON: None HISTORY: Back pain Lumbar vertebra have normal alignment. Posterior elements are intact. Disc spaces are normal. There i s no compression fracture. Lumbar nerve roots appear normal. Neural foramina are widely patent. I see no bony destructive process. There is no lumbar paraspinal mass. IMPRESSION: Normal MR scan of the lumbar spine. No lumbar disc herniation or spinal stenosis. No fracture.
== END | disposition home or self-care (01) ==
LOC: RADMRIMAIN 06:40
PROVIDERS: ATTEND Physical Medicine & Rehabilitation
DX: M54.9 Dorsalgia, unspecified (principal)
CPT/HCPCS: 72148

== ENCOUNTER 2020-10-12 13:01 | Day surgery (SDC) | payer MEDICAID ==
[2020-10-10 16:10] VITALS: BMI 32.1
[2020-10-12] MEDS ORDERED: LACTATED RINGERS 1,000 ML IV ONE ×2 (13:47→16:02)
[2020-10-12] MEDS ORDERED: LIDOCAINE 1% (10MG/ML) FOR IV START INTRADERMA ONE (13:48)
[2020-10-12] MEDS ORDERED: DEXAMETHASONE SOD PHOSPHATE 4 MG/ML 1 ML VIAL IV ONE (13:49)
[2020-10-12] MEDS ORDERED: ONDANSETRON 4 MG/2 ML VIAL ONE (13:50)
[2020-10-12] MEDS ORDERED: ONDANSETRON 4 MG/2 ML VIAL IVP ONE (13:50)
[2020-10-12] MEDS ORDERED: MIDAZOLAM 2 MG/2 ML VIAL IV ONE ×2 (13:56→14:03)
[2020-10-12] MEDS ORDERED: DEXAMETHASONE SOD PHOSPHATE 4 MG/ML 1 ML VIAL ONE (14:15)
[2020-10-12] MEDS ORDERED: fentaNYL (PF) 50 MCG/ML 2 ML AMP ONE (14:15)
[2020-10-12] MEDS ORDERED: ETOMIDATE 2 MG/ML 10 ML VIAL ONE (14:15)
[2020-10-12] MEDS ORDERED: LIDOCAINE 1% INJ 10MG/ML (20 ML MDV) ONE (14:15)
[2020-10-12] MEDS ORDERED: MIDAZOLAM 2 MG/2 ML VIAL ONE (14:15)
[2020-10-12] MEDS ORDERED: ROPIVACAINE 5 MG/ML 30 ML VIAL ONE (14:15)
[2020-10-12] MEDS ORDERED: SODIUM CHLORIDE 0.9% 50 ML with CLINDAMYCIN 600 MG IV ONE ×2 (14:23)
[2020-10-12] MEDS ORDERED: THROMBIN (BOVINE) 5,000 UNIT VIAL TOPICAL ONE (14:42)
[2020-10-12 15:18] VITALS: TEMP 97
--- NOTE | 2020-10-12 15:25 | P.OP ---
Date of Procedure: 10/12/20 Preoperative Diagnosis: Tarsal tunnel syndrome left Postoperative Diagnosis: Same Procedure(s) Performed: Tarsal tunnel release left foot Anesthesia: GETA Estimated Blood Loss (ml): 5 Pathology: other (Foreign material found within the subcutaneous tissue of the left ankle) Condition: stable Disposition: PACU Indications for Procedure: Neurological symptoms traced along the course of the posterior tibial nerve unresponsive to conservative treatment Description of Procedure: Prior to the patient being brought to the operating room anesthesia administered a nerve block on the left lower extremity under ultrasonic guidance and mild sedation. Then the patient was brought into the operating room and placed on table supine position. Timeout was taken to confirm correct patient identifiers, correct procedure, as well as correct site of surgery. Once the room was in agreement the patient was then induced and placed under general anesthetic. A well-padded tourniquet was placed the left calf. Then the left leg was prepped and draped usual manner. The left leg was exsanguinated the tourniquet inflated to 250 mmHg. Attention directed over the posterior medial aspect of the hindfoot where the tissue posterior to the medial malleolus was palpated along the course of the posterior tibial nerve as it entered deep to the adductor hallucis muscle belly. The incision was made along the course of the nerve. The incision was deepened down to the subcutaneous tissue careful to identify, avoid, and retract any neurovascular structures and cauterize any bleeding vessels. During the blunt dissection the subcutaneous tissue there was white foreign material encountered. It appeared solid so it was removed and will be sent to pathology for evaluation. Dissection was continued down to the retinaculum overlying the neurovascular structures. A small incision was made to the retinaculum just superior to the border of the adductor hallucis muscle belly. Blunt instrumentation was inserted between the retinaculum any neurovascular structures and then the retinaculum was opened. The course of the posterior tibial nerve was followed into the tarsal canal and then both the medial and lateral branches were identified. Blunt instrumentation was placed between the nerve and the fascia on the deep portion of the muscle belly. Once the nerve was protected the deep fascia was incised down to the muscle belly. The ligamentous septa between the nerve branches was also resected at the same time again while protecting the nerves themselves. Once completed there was palpated to make sure that all the constricted areas were released and once they were satisfactory released the wound is irrigated with saline. Then 5000 units of topical thrombin were placed into the wound where gauze was inserted and then placed under pressure to help decrease as much bleeding as possible postoperatively. After 3 minutes the gauze was removed. The subcutaneous tissue was then closed with 4-0 Monocryl and the skin closure done with wilder. An Arthrex jumpstart dressing was placed over the incision and then gauze and a dry sterile dressing were applied to the foot and ankle. The tourniquet was released and capillary refill return to all digits of the left foot. Patient is then placed in a fracture boot while holding the ankle in neutral position. Anesthesia was reversed and the patient was taken recovery with vital signs stable.
--- NOTE | 2020-10-12 15:27 | P.ANPRN ---
Procedure Note - Anesthesia - Nerve Block Performed Left Adductor Canal Time Out Performed: Yes (13:56) Date of Procedure: 10/12/20 Procedure Start Time: 13:56 Procedure Stop Time: 14:11 Location of Patient: PreOp Indication: Acute Post-Operative Pain, Requested by Surgeon (Dr raines) Sedation Type: Sedate with meaningful contact maintained Preparation: Sterile Prep Position: Supine Catheter: None Needle Types: Pajunk Needle Gauge: 21 Ultrasound used to visualize needle placement: Yes Ultrasound used to observe medication spread: Yes Injectate: 0.5% Ropivacaine (see comment for volume) (15cc) Blood Aspirated: No Pain Paresthesia on Injection Noted: No Resistance on Injection: Normal Image Stored and Saved: Yes Events: Uneventful and Well Tolerated
--- NOTE | 2020-10-12 15:29 | P.ANPRN ---
Procedure Note - Anesthesia - Nerve Block Performed Left Popliteal Time Out Performed: Yes Date of Procedure: 10/12/20 Procedure Start Time: 14:12 Procedure Stop Time: 14:25 Location of Patient: PreOp Indication: Acute Post-Operative Pain, Requested by Surgeon (Dr Barron) Sedation Type: Sedate with meaningful contact maintained Preparation: Sterile Prep Position: Right Lateral Catheter: None Needle Types: Pajunk Needle Gauge: 21 Ultrasound used to visualize needle placement: Yes Ultrasound used to observe medication spread: Yes Injectate: 0.5% Ropivacaine (see comment for volume) (15cc in the popliteal fossa) Blood Aspirated: No Pain Paresthesia on Injection Noted: No Resistance on Injection: Normal Image Stored and Saved: Yes Events: Uneventful and Well Tolerated
[2020-10-12] MEDS ORDERED: METOCLOPRAMIDE 5 MG/ML 2 ML VIAL IVP ONE (15:45)
[2020-10-12 16:17] VITALS: RESP 16
[2020-10-12 16:22] VITALS: BP 122/83; PULSE 102
--- NOTE | 2020-10-19 08:20 | CDI ---
Outpatient Documentation Clarification Form Date: 10/19/20 CDS/Wool Fleece Sorter Name: Jazz Cross Phone: If any questions, call Jacqueline Hugo Pipe Organ Tuner And Repairer at [phone] Patient Name: Mary Banuelos Admit Date: 10/12/20 Discharge Date: 10/12/20 ATTENTION: The [facility] Coding Staff appreciate your assistance in clarifying documentation. Please respond to the clarification below the line at the bottom and electronically sign. The [facility] Coding staff will review the response and follow-up if needed. Please note: Queries are made part of the Legal Health Record. If you have any questions, please contact the Pipe Organ Tuner And Repairer. Dear Dr. Padron, Please provide clarification as to the type of popliteal nerve block was performed. Please reference below: A popliteal block procedure note, without a description of the anatomy is not helpful in determining the correct code to report. A popliteal fossa injection is reported with CPT code 61330 (sciatic nerve), whereas a saphenous popliteal is reported with CPT code 81887 (other peripheral nerve block). Please clarify the area of the popliteal nerve block. Thank you for your kind consideration. popliteal fossa MTDD
== END 2020-10-12 16:42 | disposition home or self-care (01) ==
LOC: OR 13:01
PROVIDERS: ATTEND Podiatrist
DX: G57.52 Tarsal tunnel syndrome, left lower limb (principal); M72.2 Plantar fascial fibromatosis; R45.0 Nervousness; J98.4 Other disorders of lung; R51.9 Headache, unspecified; Z87.442 Personal history of urinary calculi; Z83.3 Family history of diabetes mellitus; Z82.49 Family history of ischemic heart disease and other diseases of the circulatory system; Z97.3 Presence of spectacles and contact lenses; Z79.1 Long term (current) use of non-steroidal anti-inflammatories (NSAID); Z79.899 Other long term (current) drug therapy; Z88.2 Allergy status to sulfonamides; Z91.012 Allergy to eggs; Z91.013 Allergy to seafood; Z88.1 Allergy status to other antibiotic agents; Z88.5 Allergy status to narcotic agent; Z88.0 Allergy status to penicillin
CPT/HCPCS: 28035; 64447; 81025; 64445; 76942; 88304; J2250; J1100; J2765; J2405; J2001; J3010; J2795

== ENCOUNTER → 2021-01-15 | Outpatient (CLI) | payer MEDICAID, OTHER | END | disposition home or self-care (01) | LOC: LABWHC1 17:44 | PROVIDERS: ATTEND Emergency Medicine | DX: Z03.818 Encounter for observation for suspected exposure to other biological agents ruled out (principal); Z20.822 Contact with and (suspected) exposure to COVID-19 | CPT/HCPCS: 87635 ==

== ENCOUNTER 2023-07-21 13:00 | Emergency (ER) | payer MEDICAID, OTHER ==
--- NOTE | 2023-07-21 13:13 | ED ---
Recheck HPI - General Chief Complaint: Recheck/Abnormal Lab/Rx Stated Complaint: Kidney stones Time Seen by Provider: 07/21/23 13:11 Source: patient, RN notes reviewed Mode of arrival: ambulatory Limitations: no limitations - History of Present Illness Initial Comments: Patient is a 28-year-old female presented to ER with chief complaint of right flank pain. She states this been going on since Saturday. She also endorses chills, nausea, vomiting and diarrhea. She states that she has been peeing frequently and there is a burning sensation when she starts to urinate. Patient has a past medical history significant for kidney stones. She states this pain feels similar. Denies any chest pain, shortness of breath, peripheral edema. - Related Data Home Medications Medication Instructions Recorded Confirmed Albuterol Inhaler [Ventolin Hfa 2 puff INHALATION RT-QID PRN 10/10/20 10/12/20 Inhaler] Ibuprofen [Motrin] 800 mg PO Q8H PRN 10/10/20 10/12/20 Previous Rx's Medication Instructions Recorded traMADol HCl [Ultram] 50 mg PO Q6HR PRN 7 Days #30 tab 10/12/20 Allergies Allergy/AdvReac Type Severity Reaction Status Date / Time amoxicillin [Amoxicillin] Allergy Rash/Hives Verified 07/21/23 13:04 azithromycin Allergy Rash/Hives Verified 07/21/23 13:04 [From Zithromax Z-Jayson] codeine Allergy Hallucinati Verified 07/21/23 13:04 ons egg Allergy Anaphylaxis Verified 07/21/23 13:04 ethinyl estradiol Allergy Rash/Hives Verified 07/21/23 13:04 [From ()] Milk Containing Products Allergy Anaphylaxis Verified 07/21/23 13:04 (Dairy) [Dairy] norethindrone acetate Allergy Rash/Hives Verified 07/21/23 13:04 [From ()] shellfish derived [Shrimp] Allergy Anaphylaxis Verified 07/21/23 13:04 Sulfa (Sulfonamide Allergy Rash/Hives Verified 07/21/23 13:04 Antibiotics) tree nut Allergy throat Verified 07/21/23 13:04 swelling,cold sores tuna oil Allergy Nausea & Verified 07/21/23 13:04 Vomiting & Diarrhea Review of Systems ROS Statement: Those systems with pertinent positive or pertinent negative responses have been documented in the HPI. ROS Other: All systems not noted in ROS Statement are negative. Past Medical History Past Medical History: Asthma, Musculoskeletal Disorder, Thyroid Disorder Additional Past Medical History / Comment(s): hypothyroidism, kidney stones, left foot pain constantly, fully vaccinated History of Any Multi-Drug Resistant Organisms: None Reported Past Surgical History: No Surgical Hx Reported Additional Past Surgical History / Comment(s): cysto for kidney stone removal an d stent placement 2013 Past Anesthesia/Blood Transfusion Reactions: No Reported Reaction Past Psychological History: Anxiety Smoking Status: Never smoker Past Alcohol Use History: None Reported Past Drug Use History: None Reported - Past Family History Brother(s) History Unknown: Yes Additional Family Medical History / Comment(s): Patient has 2 brothers and one had croup as a child. No major medical problems. Sister(s) Additional Family Medical History / Comment(s): Patient has one sister with hypothyroidism. Mother Additional Family Medical History / Comment(s): Mother is alive with history of hypothyroidism. No history of asthma. Father Additional Family Medical History / Comment(s): Father is alive with history of diabetes and renal failure. No history of asthma. General Exam Limitations: no limitations General appearance: alert, in no apparent distress Head exam: Present: atraumatic, normocephalic, normal inspection Eye exam: Present: normal appearance, PERRL, EOMI. Absent: scleral icterus, conjunctival injection, periorbital swelling Respiratory exam: Present: normal lung sounds bilaterally. Absent: respiratory distress, wheezes, rales, rhonchi, stridor Cardiovascular Exam: Present: normal rhythm, tachycardia, normal heart sounds GI/Abdominal exam: Present: soft, tenderness (Right lower quadrant), normal bowel sounds. Absent: distended, guarding, rebound, rigid Extremities exam: Present: normal inspection, full ROM, normal capillary refill. Absent: tenderness, pedal edema, joint swelling, calf tenderness Back exam: Present: normal inspection Neurological exam: Present: alert, oriented X3, CN II-XII intact Psychiatric exam: Present: normal affect, normal mood Skin exam: Present: warm, dry, intact, normal color. Absent: rash Course Vital Signs 07/21/23 13:02 Temperature 98 F Pulse Rate 118 H Respiratory 18 Rate Blood Pressure 132/78 O2 Sat by Pulse 98 Oximetry Medical Decision Making - Medical Decision Making Was pt. sent in by a medical professional or institution (, [facility], INTELLIGENCE SENIOR SERGEANT, urgent care, hospital, or halfway...) When possible be specific @ -No Did you speak to anyone other than the patient for history (EMS, parent, family, police, friend...)? What history was obtained from this source @ -No Did you review nursing and triage notes (agree or disagree)? Why? @ -I reviewed and agree with nursing and triage notes Were old charts reviewed (outside hosp., previous admission, EMS record, old EKG, old radiological studies, urgent care reports/EKG's, halfway records)? Report findings @ -No old charts were reviewed Differential Diagnosis (chest pain, altered mental status, abdominal pain women, abdominal pain men, vaginal bleeding, weakness, fever, dyspnea, syncope, headache, dizziness, GI bleed, back pain, seizure, CVA, palpatations, mental health, musculoskeletal)? @ -Differential Abdominal Pain Women: Appendicitis, Cholecystitis, diverticulosis, ischemic bowel, pancreatitis, hepatitis, UTI, gastroenteritis, AAA, incarcerated hernia, bowel obstruction, constipation, inflammatory bowel, hepatitis, peptic ulcer disease, splenic infarction, perforated viscus, vulvitis, ovarian torsion, PID, kidney stone, placenta abruption, this is not meant to be an all-inclusive list EKG interpreted by me (3pts min.). @ -None X-rays interpreted by me (1pt min.). @ -None done CT interpreted by me (1pt min.). @ -CT abdomen pelvis negative for obstructive uropathy. Nonobstructing bilateral renal calculi. Appendix normal. U/S interpreted by me (1pt. min.). @ -Gallbladder ultrasound negative for acute process. What testing was considered but not performed or refused? (CT, X-rays, U/S, labs)? Why? @ -None What meds were considered but not given or refused? Why? @ -None Did you discuss the management of the patient with other professionals (professionals i.e. [place] [facility] Zhao, INTELLIGENCE SENIOR SERGEANT, lab, RT, psych nurse, social science teacher, skydiving instructor, teacher, youth liaison officer, outpatient case manager)? Give summary @ -No Was smoking cessation discussed for >3mins.? @ -No Was critical care preformed (if so, how long)? @ -No Were there social determinants of health that impacted care today? How? (Homelessness, low income, unemployed, alcoholism, drug addiction, transportation, low edu. Level, literacy, decrease access to med. care, correction, rehab)? @ -No Was there de-escalation of care discussed even if they declined (Discuss DNR or withdrawal of care, Hospice)? DNR status @ -No What co-morbidities impacted this encounter? (DM, HTN, Smoking, COPD, CAD, Cancer, CVA, ARF, Chemo, Hep., AIDS, mental health diagnosis, sleep apnea, morbid obesity)? @ -None Was patient admitted / discharged? Hospital course, mention meds given and route, prescriptions, significant lab abnormalities, going to OR and other pertinent info. @ -Discharge. Patient is a 28-year-old female presented to the ER with a chief complaint of right flank and abdominal pain. History and physical exam completed. Vitals stable. Patient in no signs of acute distress and nontoxic- appearing. Patient was tender to right lower quadrant. No right CVA tenderness. Normal bowel sounds. Labs obtained unremarkable. Urine without signs of infection or blood. CT abdomen pelvis significant for nonobstructing bilateral renal calculi. Normal appendix. No obstructive uropathy. Gallbladder ultrasound negative for acute process. Patient received symptomatic control in the ER. Results discussed with patient, all questions answered. Advise close follow-up with PCP. Return parameters discussed. Patient discharged stable condition with follow-up to PCP. Patient expressed understanding and agreement with care plan. Case discussed with ED attending, Dr. Fonseca. Undiagnosed new problem with uncertain prognosis? @ -No Drug Therapy requiring intensive monitoring for toxicity (Heparin, Nitro, Insulin, Cardizem)? @ -No Were any procedures done? @ -No Diagnosis/symptom? @ -Abdominal pain/flank pain Acute, or Chronic, or Acute on Chronic? @ -Acute Uncomplicated (without systemic symptoms) or Complicated (systemic symptoms)? @ -Uncomplicated Side effects of treatment? @ -No Exacerbation, Progression, or Severe Exacerbation? @ -No Poses a threat to life or bodily function? How? (Chest pain, [place], [place], pneumonia, PE, COPD, DKA, ARF, appy, cholecystitis, CVA, Diverticulitis, Homicidal, Suicidal, threat to staff... and all critical care pts) @ -No - Lab Data Result diagrams: 07/21/23 13:16 07/21/23 13:16 Lab Results 07/21/23 07/21/23 07/21/23 Range/Units 13:16 13:16 13:16 WBC 8.0 (3.8-10.6) k/uL RBC 4.89 (3.80-5.40) m/uL Hgb 14.4 (11.4-16.0) gm/dL Hct 43.9 (34.0-46.0) % MCV 89.6 (80.0-100.0) fL MCH 29.4 (25.0-35.0) pg MCHC 32.8 (31.0-37.0) g/dL RDW 11.8 (11.5-15.5) % Plt Count 342 (150-450) k/uL MPV 7.8 Neutrophils % 69 % Lymphocytes % 25 % Monocytes % 4 % Eosinophils % 1 % Basophils % 0 % Neutrophils # 5.5 (1.3-7.7) k/uL Lymphocytes # 2.0 (1.0-4.8) k/uL Monocytes # 0.3 (0-1.0) k/uL Eosinophils # 0.1 (0-0.7) k/uL Basophils # 0.0 (0-0.2) k/uL Sodium (137-145) mmol/L Potassium (3.5-5.1) mmol/L Chloride (98-107) mmol/L Carbon Dioxide (22-30) mmol/L Anion Gap mmol/L BUN (7-17) mg/dL Creatinine (0.52-1.04) mg/dL Est GFR (CKD-EPI)AfAm (>60 ml/min/1.73 sqM) Est GFR (CKD-EPI)NonAf (>60 ml/min/1.73 sqM) Glucose (74-99) mg/dL Plasma Lactic Acid Ross (0.7-2.0) mmol/L Calcium (8.4-10.2) mg/dL Total Bilirubin (0.2-1.3) mg/dL AST (14-36) U/L ALT (4-34) U/L Alkaline Phosphatase (38-126) U/L Total Protein (6.3-8.2) g/dL Albumin (3.5-5.0) g/dL Urine Color Colorless Urine Appearance Clear (Clear) Urine pH 6.0 (5.0-8.0) Ur Specific [place] 1.010 (1.001-1.035) Urine Protein Negative (Negative) Urine Glucose (UA) Negative (Negative) Urine Ketones Negative (Negative) Urine Blood Negative (Negative) Urine Nitrite Negative (Negative) Urine Bilirubin Negative (Negative) Urine Urobilinogen <2.0 (<2.0) mg/dL Ur Leukocyte Esterase Negative (Negative) Urine HCG, Qual Not Detected (Not Detectd) 07/21/23 07/21/23 Range/Units 13:16 13:16 WBC (3.8-10.6) k/uL RBC (3.80-5.40) m/uL Hgb (11.4-16.0) gm/dL Hct (34.0-46.0) % MCV (80.0-100.0) fL MCH (25.0-35.0) pg MCHC (31.0-37.0) g/dL RDW (11.5-15.5) % Plt Count (150-450) k/uL MPV Neutrophils % % Lymphocytes % % Monocytes % % Eosinophils % % Basophils % % Neutrophils # (1.3-7.7) k/uL Lymphocytes # (1.0-4.8) k/uL Monocytes # (0-1.0) k/uL Eosinophils # (0-0.7) k/uL Basophils # (0-0.2) k/uL Sodium 138 (137-145) mmol/L Potassium 3.9 (3.5-5.1) mmol/L Chloride 106 (98-107) mmol/L Carbon Dioxide 23 (22-30) mmol/L Anion Gap 9 mmol/L BUN 20 H (7-17) mg/dL Creatinine 0.70 (0.52-1.04) mg/dL Est GFR (CKD-EPI)AfAm >90 (>60 ml/min/1.73 sqM) Est GFR (CKD-EPI)NonAf >90 (>60 ml/min/1.73 sqM) Glucose 108 H (74-99) mg/dL Plasma Lactic Acid Ross 1.2 (0.7-2.0) mmol/L Calcium 9.5 (8.4-10.2) mg/dL Total Bilirubin 0.6 (0.2-1.3) mg/dL AST 25 (14-36) U/L ALT 17 (4-34) U/L Alkaline Phosphatase 94 (38-126) U/L Total Protein 8.0 (6.3-8.2) g/dL Albumin 4.6 (3.5-5.0) g/dL Urine Color Urine Appearance (Clear) Urine pH (5.0-8.0) Ur Specific [place] (1.001-1.035) Urine Protein (Negative) Urine Glucose (UA) (Negative) Urine Ketones (Negative) Urine Blood (Negative) Urine Nitrite (Negative) Urine Bilirubin (Negative) Urine Urobilinogen (<2.0) mg/dL Ur Leukocyte Esterase (Negative) Urine HCG, Qual (Not Detectd) - Radiology Data Radiology results: report reviewed, image reviewed Disposition Clinical Impression: Abdominal pain Disposition: HOME SELF-CARE Condition: Stable Instructions (If sedation given, give patient instructions): Abdominal Pain (ED) Additional Instructions: Please follow-up with PCP. Return to the ER for any new or worsening symptoms Is patient prescribed a controlled substance at d/c from ED?: No Referrals: Deniz Jarrell DO [Primary Care Provider] - 1-2 days Time of Disposition: 16:07
[2023-07-21] MEDS: ONDANSETRON 4 MG/2 ML VIAL IVP STA (13:21)
[2023-07-21] MEDS: SODIUM CHLORIDE 0.9% 1,000 ML IV STA (13:21)
[2023-07-21] MEDS: KETOROLAC 15 MG/ML 1 ML VIAL IVP STA (13:21)
[2023-07-21 13:28] VITALS: TEMP 98
[2023-07-21 13:45] LABS: Basophils % (A) 0 %; Eosinophils # (A) 0.1 k/uL (0-0.7); Eosinophils % (A) 1 %; HCT 43.9 % (34.0-46.0); HGB 14.4 gm/dL (11.4-16.0); Lymphocytes % (A) 25 %; MCH 29.4 pg (25.0-35.0); MCHC 32.8 g/dL (31.0-37.0); MCV 89.6 fL (80.0-100.0); Mean Platelet Volume 7.8; Monocytes # (A) 0.3 k/uL (0-1.0); Monocytes % (A) 4 %; Neutrophils # (A) 5.5 k/uL (1.3-7.7); Neutrophils % (A) 69 %; Platelet Count 342 k/uL (150-450); RBC 4.89 m/uL (3.80-5.40); RDW 11.8 % (11.5-15.5)
[2023-07-21 13:50] LABS: ALT 17 U/L (4-34); AST 25 U/L (14-36); African American GFR (CKD) >90 (>60 ml/min/1.73 sqM); Albumin 4.6 g/dL (3.5-5.0); Alkaline Phosphatase 94 U/L (38-126); Anion Gap 9 mmol/L; Blood Urea Nitrogen 20 mg/dL (7-17); Calcium 9.5 mg/dL (8.4-10.2); Carbon Dioxide 23 mmol/L (22-30); Chloride 106 mmol/L (98-107); Glucose 108 mg/dL (74-99); Non-African American GFR(CKD) >90 (>60 ml/min/1.73 sqM); Potassium 3.9 mmol/L (3.5-5.1); Sodium 138 mmol/L (137-145); Total Bilirubin 0.6 mg/dL (0.2-1.3)
--- NOTE | 2023-07-21 14:02 | CT ---
EXAMINATION TYPE: CT abdomen pelvis wo con CT DLP: 776.1 mGycm, Automated exposure control for dose reduction was used. DATE OF EXAM: 07/21/2023 1:45 PM COMPARISON: 02/14/2019 CLINICAL INDICATION:Female, 28 years old with history of right flank pain hx stone; right flank pain TECHNIQUE: Axial CT abdomen pelvis wo con;Sagittal and coronal reformats were created on a separate workstation. Contrast used: mL of , (none if empty) Oral contrast used: without Oral Contrast (none if empty) FINDINGS: LOWER CHEST: Unremarkable ABDOMEN LIVER: Unremarkable GALLBLADDER AND BILE DUCTS: Unremarkable. PANCREAS: Unremarkable. SPLEEN: Unremarkable. ADRENAL GLANDS: Unremarkable. KIDNEYS AND URETERS: No evidence of hydronephrosis or renal obstructive calculus. The ureters are unr emarkable. There is nonobstructing calculus on the left measuring up to 3 mm. No obstructing 2 mm ca lculus in the right. PELVIS BLADDER: Unremarkable REPRODUCTIVE: Unremarkable. ABDOMEN & PELVIS STOMACH AND BOWEL: No evidence of bowel obstruction. The appendix is normal. PERITONEUM/RETROPERITONEUM: No evidence of pneumoperitoneum or free fluid. VASCULATURE: No evidence of aortic aneurysm. MUSCULOSKELETAL: No acute osseous abnormalities LYMPH NODES: No gross evidence for lymphadenopathy. SOFT TISSUE/ABDOMINAL WALL: Unremarkable IMPRESSION: No process to correlate patient's flank pain. No evidence for obstructive uropathy. Nonobstructing bi lateral renal calculi. The appendix is normal.
[2023-07-21 14:44] LABS: Appearance,Urine Clear (Clear); Bilirubin,Urine Negative (Negative); Blood,Urine Negative (Negative); Color,Urine Colorless; Glucose,Urine (UA) Negative (Negative); Ketones,Urine Negative (Negative); Leukocyte Esterase,Urine Negative (Negative); Nitrite,Urine Negative (Negative); Protein,Urine Negative (Negative); Urobilinogen,Urine <2.0 mg/dL (<2.0)
--- NOTE | 2023-07-21 16:04 | US ---
EXAMINATION TYPE: US gallbladder DATE OF EXAM: 07/21/2023 COMPARISON: None. CLINICAL INDICATION: Female, 28 years old with history of RUQ pain; NPO x 5 hours. TECHNIQUE: Multiple sonographic images of the right upper quadrant are obtained. FINDINGS: EXAM MEASUREMENTS: Liver Length: 14.3 cm Gallbladder Wall: 0.2 cm CBD: 0.3 cm Right Kidney: 9.5 x 4.3 x 5.4 cm Pancreas: Limited visualization due to bowel gas Liver: Heterogenous in appearance with hyperechogenicity of the parenchyma. Gallbladder: No stones or wall thickening Evidence for sonographic Manuel's sign: neg CBD: wnl Right Kidney: No hydronephrosis or masses seen at time of scan IMPRESSION: 1. No evidence of acute process. 2. Hepatic steatosis.
[2023-07-21 16:15] VITALS: BP 127/94; PULSE 78; RESP 16
== END 2023-07-21 16:15 | disposition home or self-care (01) ==
LOC: EC 13:00
DX: K76.0 Fatty (change of) liver, not elsewhere classified (principal); N20.0 Calculus of kidney
CPT/HCPCS: 36415; 80053; 83605; 85025; 81003; 81025; 76705; 74176; 99284; 96374; 96375; 96361; J2405; J1885

== ENCOUNTER 2024-08-04 12:53 | Emergency (ER) | payer MEDICAID ==
[2024-08-04] MEDS: PROPARACAINE 0.5% OPHTH DROPS 15 ML BTL LEFT EYE STA (13:06)
--- NOTE | 2024-08-04 13:48 | ED ---
General Adult HPI - General Chief complaint: ENT Stated complaint: L eye issue Time Seen by Provider: 08/04/24 13:00 Source: patient, RN notes reviewed, old records reviewed Mode of arrival: ambulatory Limitations: no limitations - History of Present Illness Initial comments: 29-year-old female with sensation of foreign body in the left eye. Patient was eating chips and she had a sudden sensation that she had gotten something in her eye perhaps a chip Krom. She attempted to remove this at home without success. - Related Data Home Medications Medication Instructions Recorded Confirmed Albuterol Inhaler [Ventolin Hfa 2 puff INHALATION RT-QID PRN 10/10/20 10/12/20 Inhaler] Ibuprofen [Motrin] 800 mg PO Q8H PRN 10/10/20 10/12/20 Previous Rx's Medication Instructions Recorded traMADol HCl [Ultram] 50 mg PO Q6HR PRN 7 Days #30 tab 10/12/20 Ciprofloxacin Ophth Soln [Cipro 2 drops LEFT EYE Q6HR #5 ml 08/04/24 0.3% Ophth Soln] Allergies Allergy/AdvReac Type Severity Reaction Status Date / Time amoxicillin [Amoxicillin] Allergy Rash/Hives Verified 08/04/24 13:01 azithromycin Allergy Rash/Hives Verified 08/04/24 13:01 [From Zithromax Z-Jayson] codeine Allergy Hallucinati Verified 08/04/24 13:01 ons egg Allergy Anaphylaxis Verified 08/04/24 13:01 ethinyl estradiol Allergy Rash/Hives Verified 08/04/24 13:01 [From ()] Milk Containing Products Allergy Anaphylaxis Verified 08/04/24 13:01 (Dairy) [Dairy] norethindrone acetate Allergy Rash/Hives Verified 08/04/24 13:01 [From ()] shellfish derived [Shrimp] Allergy Anaphylaxis Verified 08/04/24 13:01 Sulfa (Sulfonamide Allergy Rash/Hives Verified 08/04/24 13:01 Antibiotics) tree nut Allergy throat Verified 08/04/24 13:01 swelling,cold sores tuna oil Allergy Nausea & Verified 08/04/24 13:01 Vomiting & Diarrhea Review of Systems ROS Statement: Those systems with pertinent positive or pertinent negative responses have been documented in the HPI. ROS Other: All systems not noted in ROS Statement are negative. Past Medical History Past Medical History: Asthma, Musculoskeletal Disorder, Thyroid Disorder Additional Past Medical History / Comment(s): hypothyroidism, kidney stones, left foot pain constantly, fully vaccinated History of Any Multi-Drug Resistant Organisms: None Reported Past Surgical History: No Surgical Hx Reported Additional Past Surgical History / Comment(s): cysto for kidney stone removal and stent placement 2013 Past Anesthesia/Blood Transfusion Reactions: No Reported Reaction Past Psychological History: Anxiety Smoking Status: Never smoker Past Alcohol Use History: None Reported Past Drug Use History: None Reported - Past Family History Brother(s) History Unknown: Yes Additional Family Medical History / Comment(s): Patient has 2 brothers and one had croup as a child. No major medical problems. Sister(s) Additional Family Medical History / Comment(s): Patient has one sister with hypothyroidism. Mother Additional Family Medical History / Comment(s): Mother is alive with history of hypothyroidism. No history of asthma. Father Additional Family Medical History / Comment(s): Father is alive with history of diabetes and renal failure. No history of asthma. General Exam Limitations: no limitations General appearance: alert, in no apparent distress Head exam: Present: atraumatic, normocephalic Eye exam: Present: other (Corneal foreign body or punctate corneal abrasion mid cornea, left eye) Neck exam: Present: normal inspection. Absent: tenderness, meningismus Respiratory exam: Present: normal lung sounds bilaterally. Absent: respiratory distress, wheezes Cardiovascular Exam: Present: regular rate, normal rhythm GI/Abdominal exam: Present: soft. Absent: distended, tenderness Course Vital Signs 08/04/24 12:59 Pulse Rate 117 H Respiratory 20 Rate Blood Pressure 161/102 O2 Sat by Pulse 99 Oximetry Medical Decision Making - Medical Decision Making Was pt. sent in by a medical professional or institution (, PA, PREMIUM NOTE INTEREST CALCULATOR CLERK, urgent care, hospital, or halfway...) When possible be specific @ -No Did you speak to anyone other than the patient for history (EMS, parent, family, police, friend...)? What history was obtained from this source @ -No Did you review nursing and triage notes (agree or disagree)? Why? @ -I reviewed and agree with nursing and triage notes Were old charts reviewed (outside hosp., previous admission, EMS record, old EKG, old radiological studies, urgent care reports/EKG's, halfway records)? Report findings @ -No old charts were reviewed Differential Diagnosis corneal abrasion, corneal foreign body, corneal laceration EKG interpreted by me (3pts min.). @ -As above X-rays interpreted by me (1pt min.). @ -None done CT interpreted by me (1pt min.). @ -None done U/S interpreted by me (1pt. min.). @ -None done What testing was considered but not performed or refused? (CT, X-rays, U/S, labs)? Why? @ -None What meds were considered but not given or refused? Why? @ -None Did you discuss the management of the patient with other professionals (professionals i.e. , PA, PREMIUM NOTE INTEREST CALCULATOR CLERK, lab, RT, psych nurse, social worker assistant, firearms model maker, teacher, community liaison officer, case making machine operator)? Give summary @ -No Was smoking cessation discussed for >3mins.? @ -No Was critical care preformed (if so, how long)? @ -No Were there social determinants of health that impacted care today? How? (Homelessness, low income, unemployed, alcoholism, drug addiction, transportation, low edu. Level, literacy, decrease access to med. care, snf, rehab)? @ -No Was there de-escalation of care discussed even if they declined (Discuss DNR or withdrawal of care, Hospice)? DNR status @ -No What co-morbidities impacted this encounter? (DM, HTN, Smoking, COPD, CAD, Cancer, CVA, ARF, Chemo, Hep., AIDS, mental health diagnosis, sleep apnea, morbid obesity)? @ -None Was patient admitted / discharged? Hospital course, mention meds given and route, prescriptions, significant lab abnormalities, going to OR and other pertinent info. @ -29-year-old female with foreign body sensation in the left eye possible fragment of a chip. Patient has a submillimeter punctate either foreign body or abrasion in the mid cornea. Symptoms were relieved with proparacaine. There was some fluorescein uptake although this was nearly microscopic. No corneal laceration, negative Pam's test. Patient placed on antibiotic ointment and given follow-up with ophthalmology. Undiagnosed new problem with uncertain prognosis? @ -No Drug Therapy requiring intensive monitoring for toxicity (Heparin, Nitro, Insulin, Cardizem)? @ -No Were any procedures done? @ -No Diagnosis/symptom? @ -[Corneal foreign body, corneal abrasion Acute, or Chronic, or Acute on Chronic? @ -acute Uncomplicated (without systemic symptoms) or Complicated (systemic symptoms)? @ -Default Side effects of treatment? @ -No Exacerbation, Progression, or Severe Exacerbation? @ -No Poses a threat to life or bodily function? How? (Chest pain, [place], [place], pneumonia, PE, COPD, DKA, ARF, appy, cholecystitis, CVA, Diverticulitis, Homicidal, Suicidal, threat to staff... and all critical care pts) @ -No Disposition Clinical Impression: Corneal abrasion, left Disposition: HOME SELF-CARE Condition: Good Instructions (If sedation given, give patient instructions): Corneal Abrasion (ED) Prescriptions: Ciprofloxacin Ophth Soln [Cipro 0.3% Ophth Soln] 2 drops LEFT EYE Q6HR #5 ml Is patient prescribed a controlled substance at d/c from ED?: No Referrals: Deniz Jarrell DO [Primary Care Provider] - 1-2 days Jacey Mabry MD [STAFF PHYSICIAN] - 1-2 days Time of Disposition: 13:44
[2024-08-04 13:59] VITALS: BP 145/89; PULSE 94; RESP 18; TEMP 98.1
== END 2024-08-04 13:58 | disposition home or self-care (01) ==
LOC: EC 12:53
DX: T15.02XA Foreign body in cornea, left eye, initial encounter (principal); Z88.0 Allergy status to penicillin; Z88.1 Allergy status to other antibiotic agents; Z88.2 Allergy status to sulfonamides; Z88.5 Allergy status to narcotic agent; Z91.012 Allergy to eggs; Z91.011 Allergy to milk products; Z91.013 Allergy to seafood; Z91.048 Other nonmedicinal substance allergy status; Z88.8 Allergy status to other drugs, medicaments and biological substances
CPT/HCPCS: 99282